=== PATIENT | female | born 1985 | race Caucasian/White ===

== ENCOUNTER 2019-10-27 07:16 | Emergency (ER) | payer SELFPAY ==
[2019-10-27 07:21] VITALS: BP 130/85; PULSE 106; RESP 18; TEMP 36.4; O2SAT 97; BMI 46.3
--- NOTE | 2019-10-27 07:29 | ED_ITS ---
HPI - General Adult General: Chief complaint: General Medical Stated complaint: High Blood sugar Time Seen by Provider: 10/27/19 07:29 Source: patient Mode of arrival: ambulatory Limitations: no limitations History of Present Illness: HPI narrative: Patient is a 33-year-old female who presents to ED today with a complaint of elevated blood sugar; patient states she awoke this morning and had dry mouth and a headache which are usually symptoms associated with elevated blood sugar; patient states she took her blood sugar at home and it read over 500; patient tells me she at one point was taking metformin for her diabetes but has not taking any medication over the past several weeks due to unwanted side effects; patient does not have a primary care provider that manages her diabetes; the metformin she was taking was prescribed from a previous ER visit; patient denies abdominal pain, nausea, vomiting; she reports taking her blood sugars daily and states they average in the 200s Associated symptoms: Reports no associated symptoms and headache(s); Deny chest pain, dyspnea, nausea, rash, palpitations, syncope or vomiting Treatments prior to arrival: none Review of Systems Const: Denies: fever or chills Eyes: Denies: change in vision or blurry vision ENMT: Reports: dry mouth Card: Denies: chest pain, palpitations, irregular heart rhythm, lightheadedness, syncope or shortness of breath on exertion Resp: Denies: shortness of breath, productive cough or pain on inspiration GI: Denies: abdominal pain, nausea, vomiting, heartburn/indigestion or diarrhea : Denies: painful urination Musc: Denies: neck pain, back pain or joint pain Skin/Breast: Denies: rash Neuro: Reports: headache; Denies: numbness in extremities, weakness in extremities, changes in sensation or lack of coordination PFSH ED PFSH: Statuses (acute, chronic, etc) shown below reflect problem list status as previously entered and may not be historically accurate Social History Smoking and tobacco status: current every day smoker Female Reproductive History: Date of last menstrual period: 09/24/19 Physical Exam Const: COMMON NORMALS: no apparent distress, oriented x3, no limitations, alert and well nourished NUTRITIONAL APPEARANCE: obese morbidly obese HENMT: COMMON NORMALS: normocephalic and head/scalp atraumatic HEAD & SCALP: normocephalic and atraumatic Neck/C-Spine: COMMON NORMALS: full ROM, no lymphadenopathy, supple and no meningeal signs Chest: COMMONS NORMALS: inspection of chest normal Resp: COMMON NORMALS: normal respiratory effort and clear to auscultation bilaterally AUSCULTATION: clear to auscultation bilaterally Cardio: COMMON NORMALS: regular rate and regular rhythm RATE: regular rate RHYTHM: regular rhythm GI: COMMON NORMALS: normal to inspection, nondistended, normoactive bowel sounds, soft to palpation, non-tender, no hepatosplenomegaly and no masses PALPATION: Yes soft and Yes no hepatosplenomegaly : COMMON NORMALS: Yes no CVA tenderness BLADDER/KIDNEY EXAM: Yes no CVA tenderness Back/Pelvis: COMMON NORMALS: no CVA tenderness and thoracic and lumbar spine normal to inspection Extremity: COMMON NORMALS: normal to inspection Neuro: COMMON NORMALS: oriented x3 SENSORIUM/ORIENTATION: Yes alert MENINGEAL SIGNS: Yes no meningeal signs Skin: COMMON NORMALS: no rashes or lesions noted GENERAL SKIN EXAM: no rashes or lesions noted Course Vital Signs: Vital signs: Vital Signs Temperature 97.5 F L 10/27/19 07:21 Pulse Rate 99 10/27/19 09:27 Respiratory Rate 18 10/27/19 07:21 Blood Pressure 105/67 10/27/19 09:27 Pulse Oximetry 96 10/27/19 09:27 MDM - General Adult MDM Narrative: Medical decision making narrative: Since patient refuses to adhere to her metformin due to unwanted side effects we will switch her to glipizide. She was given a packet on marketing financial analyst. We will set her up with a primary care physician-stressed the importance of her following up with this. Spoke about diabetic diet. Return to ED precautions given. Blood sugars down here. No evidence for DKA. Lab Data: Labs: Lab Results 10/27/19 10/27/19 10/27/19 Range/Units 07:25 07:45 07:59 WBC 7.0 (4.0-10.0) 10^3/ uL RBC 5.83 H (4.1-5.3) 10^6/u L Hgb 16.4 H (11.5-15.3) g/dL Hct 48.1 H (37.0-47.0) % MCV 82.5 (81-99) fL MCH 28.1 (28.0-34.0) pg MCHC 34.1 (30.0-36.0) g/dL RDW 12.5 (12.1-15.1) % Plt Count 258 (130-400) 10^3/c mm MPV 10.1 (7.4-10.4) fL Neut % (Auto) 67.8 % Lymph % (Auto) 22.9 % Cheyenne % (Auto) 6.0 % Eos % (Auto) 2.6 % Baso % (Auto) 0.3 % Neut # (Auto) 4.7 (1.8-7.7) 10^3/u L Lymph # (Auto) 1.6 (0.8-4.8) 10^3/u L [place] # (Auto) 0.4 (0.2-0.9) 10^3/u L Eos # (Auto) 0.2 (0.0-0.8) 10^3/u L Baso # (Auto) 0.0 (0.0-0.1) 10^3/u L Nucleated RBC % (a uto) 0 % Nucleated RBCs # 0.0 /100WBC Specimen Type Sample Site ABG pH (7.35-7.45) ABG pCO2 (35-45) mmHg ABG pO2 (80.0-100.0) mmH g ABG HCO3 (22-26) mmol/L ABG O2 Saturation ABG Base Excess (-2.0-2.0) mmol/ L Contreras Test A-a O2 Gradient (5-10) mmHg Hematocrit (37-47) % Hgb O2 Saturation (95-100) % Carboxyhemoglobin (0.4-20.1) %THgb Total Hemoglobin (12-16) g/dL Ionized Calcium (1.1-1.4) mmol/L O2 Delivery Device FiO2 % Senior Structural Engineer ID Sodium (136-145) mmol/L Potassium (3.5-5.1) mmol/L Chloride (98-107) mmol/L Carbon Dioxide (22-29) mmol/L Anion Gap (5-19) BUN (6-20) mg/dL Creatinine (0.5-0.9) mg/dL GFR Calculation (90-130) mL/min Glucose (74-109) mg/dL POC Glucose 470 (70-110) mg/dL Calcium (8.6-10.0) mg/Dl Total Bilirubin (0.15-1.2) mg/dL AST (0-32) U/L ALT (0-33) U/L Alkaline Phosphata se (35-105) IU/L Total Protein (6.6-8.7) g/dL Albumin (3.5-5.2) g/dL Globulin (1.3-4.6) g/dL Lipase (13-60) U/L Urine Color Straw (Yellow) Urine Appearance Clear (CLEAR) Urine pH 5.0 (5-7) Ur Specific Gravit y 1.010 (1.005-1.030) Urine Protein Neg (Negative) Urine Glucose (UA) 4+ H (Normal) Urine Ketones Negative (Negative) Urine Occult Blood Neg (Negative) Urine Nitrate Negative (Negative) Urine Bilirubin Neg (NEGATIVE) Urine Urobilinogen Norm (Negative) mg/dL Ur Leukocyte Mary ase Negative (Negative) Serum Ketones (Negative) 10/27/19 10/27/19 10/27/19 Range/Units 07:59 07:59 08:48 WBC (4.0-10.0) 10^3/ uL RBC (4.1-5.3) 10^6/u L Hgb (11.5-15.3) g/dL Hct (37.0-47.0) % MCV (81-99) fL MCH (28.0-34.0) pg MCHC (30.0-36.0) g/dL RDW (12.1-15.1) % Plt Count (130-400) 10^3/c mm MPV (7.4-10.4) fL Neut % (Auto) % Lymph % (Auto) % Cheyenne % (Auto) % Eos % (Auto) % Baso % (Auto) % Neut # (Auto) (1.8-7.7) 10^3/u L Lymph # (Auto) (0.8-4.8) 10^3/u L [place] # (Auto) (0.2-0.9) 10^3/u L Eos # (Auto) (0.0-0.8) 10^3/u L Baso # (Auto) (0.0-0.1) 10^3/u L Nucleated RBC % (a uto) % Nucleated RBCs # /100WBC Specimen Type Sample Site ABG pH (7.35-7.45) ABG pCO2 (35-45) mmHg ABG pO2 (80.0-100.0) mmH g ABG HCO3 (22-26) mmol/L ABG O2 Saturation ABG Base Excess (-2.0-2.0) mmol/ L Contreras Test A-a O2 Gradient (5-10) mmHg Hematocrit (37-47) % Hgb O2 Saturation (95-100) % Carboxyhemoglobin (0.4-20.1) %THgb Total Hemoglobin (12-16) g/dL Ionized Calcium (1.1-1.4) mmol/L O2 Delivery Device FiO2 % Senior Structural Engineer ID Sodium 129 L (136-145) mmol/L Potassium 4.2 (3.5-5.1) mmol/L Chloride 93 L (98-107) mmol/L Carbon Dioxide 22 (22-29) mmol/L Anion Gap 18.2 (5-19) BUN 15 (6-20) mg/dL Creatinine 0.7 (0.5-0.9) mg/dL GFR Calculation 95.8 (90-130) mL/min Glucose 495 H (74-109) mg/dL POC Glucose 389 (70-110) mg/dL Calcium 9.8 (8.6-10.0) mg/Dl Total Bilirubin 0.3 (0.15-1.2) mg/dL AST 16 (0-32) U/L ALT 25 (0-33) U/L Alkaline Phosphata se 84 (35-105) IU/L Total Protein 6.9 (6.6-8.7) g/dL Albumin 4.0 (3.5-5.2) g/dL Globulin 2.9 (1.3-4.6) g/dL Lipase 29 (13-60) U/L Urine Color (Yellow) Urine Appearance (CLEAR) Urine pH (5-7) Ur Specific Gravit y (1.005-1.030) Urine Protein (Negative) Urine Glucose (UA) (Normal) Urine Ketones (Negative) Urine Occult Blood (Negative) Urine Nitrate (Negative) Urine Bilirubin (NEGATIVE) Urine Urobilinogen (Negative) mg/dL Ur Leukocyte Mary ase (Negative) Serum Ketones Negative (Negative) 10/27/19 10/27/19 Range/Units 09:02 09:50 WBC (4.0-10.0) 10^3/ uL RBC (4.1-5.3) 10^6/u L Hgb (11.5-15.3) g/dL Hct (37.0-47.0) % MCV (81-99) fL MCH (28.0-34.0) pg MCHC (30.0-36.0) g/dL RDW (12.1-15.1) % Plt Count (130-400) 10^3/c mm MPV (7.4-10.4) fL Neut % (Auto) % Lymph % (Auto) % [place] % (Auto) % Eos % (Auto) % Baso % (Auto) % Neut # (Auto) (1.8-7.7) 10^3/u L Lymph # (Auto) (0.8-4.8) 10^3/u L [place] # (Auto) (0.2-0.9) 10^3/u L Eos # (Auto) (0.0-0.8) 10^3/u L Baso # (Auto) (0.0-0.1) 10^3/u L Nucleated RBC % (a uto) % Nucleated RBCs # /100WBC Specimen Type Arterial Sample Site Brachial, left ABG pH 7.37 (7.35-7.45) ABG pCO2 40.0 (35-45) mmHg ABG pO2 74.6 L (80.0-100.0) mmH g ABG HCO3 23.3 (22-26) mmol/L ABG O2 Saturation 96.3 ABG Base Excess -1.8 (-2.0-2.0) mmol/ L Contreras Test Pos A-a O2 Gradient 25.7 H (5-10) mmHg Hematocrit 46.8 (37-47) % Hgb O2 Saturation 91.4 L (95-100) % Carboxyhemoglobin 5.2 (0.4-20.1) %THgb Total Hemoglobin 15.3 (12-16) g/dL Ionized Calcium 1.2 (1.1-1.4) mmol/L O2 Delivery Device Room air FiO2 21.0 % Senior Structural Engineer ID cak Sodium 134.0 (136-145) mmol/L Potassium 4.0 (3.5-5.1) mmol/L Chloride (98-107) mmol/L Carbon Dioxide (22-29) mmol/L Anion Gap (5-19) BUN (6-20) mg/dL Creatinine (0.5-0.9) mg/dL GFR Calculation (90-130) mL/min Glucose 365.0 H (74-109) mg/dL POC Glucose 310 (70-110) mg/dL Calcium (8.6-10.0) mg/Dl Total Bilirubin (0.15-1.2) mg/dL AST (0-32) U/L ALT (0-33) U/L Alkaline Phosphata se (35-105) IU/L Total Protein (6.6-8.7) g/dL Albumin (3.5-5.2) g/dL Globulin (1.3-4.6) g/dL Lipase (13-60) U/L Urine Color (Yellow) Urine Appearance (CLEAR) Urine pH (5-7) Ur Specific Gravit y (1.005-1.030) Urine Protein (Negative) Urine Glucose (UA) (Normal) Urine Ketones (Negative) Urine Occult Blood (Negative) Urine Nitrate (Negative) Urine Bilirubin (NEGATIVE) Urine Urobilinogen (Negative) mg/dL Ur Leukocyte Mary ase (Negative) Serum Ketones (Negative) Discharge Plan Discharge Patient Disposition: Home, Self-Care Clinical Impression: Non compliance w medication regimen Uncontrolled diabetes mellitus Qualifiers: Diabetes mellitus type: type 2 Glycemic state: with hyperglycemia Qualified Code(s): E11.65 - Type 2 diabetes mellitus with hyperglycemia Condition: Stable Prescriptions: New glipizide 5 mg tablet extended release 24hr 5 mg PO DAILY Qty: 30 RF: 0 Discontinued melatonin 5 mg Tablet 5 mg PO BEDTIME RF: 0 Discharge Orders: Discharge Order (Routine); Ordered 10/27/19 Ordered By: Renetta Escobar Discharge Diet: Diabetic Discharge Activity: Resume usual activity Activity Restrictions/Additional Instructions: YOU NEED TO ESTABLISH WITH A PRIMARY CARE PROVIDER FOR BETTER CONTROL OF YOUR DIABETES. BEGIN KEEPING DAILY LOG OF BLOOD SUGARS SO THEY CAN ADJUST YOUR MEDICATIONS ACCORDINGLY. Coding Level of Care Code ED Manager Consumer Insights for Chg Fwd Exam Problem Focused
--- NOTE | 2019-10-27 07:36 | PC.NURSE ---
pt states she has high blood sugar because she does not take her anti-diabetic medication.
[2019-10-27 07:39] LABS: Glucose Point of Care 470 mg/dL (70-110)
[2019-10-27 07:56] LABS: Add Urine Microscopic? NO
[2019-10-27 08:02] LABS: Bilirubin Urine Neg (NEGATIVE); Blood Urine Neg (Negative); Glucose Urine UA 4+ (Normal); Ketones Urine Negative (Negative); Leukocyte Esterase Urine Negative (Negative); Nitrate Urine Negative (Negative); Protein Urine Neg (Negative); Urine Appearance Clear (CLEAR); Urine Color Straw (Yellow); Urobilinogen Urine Norm (Negative)
[2019-10-27 08:07] LABS: Basophils % 0.3 %; Eosinophils # 0.2 10^3/uL (0.0-0.8); Eosinophils % 2.6 %; Hematocrit 48.1 % (37.0-47.0); Hemoglobin 16.4 g/dL (11.5-15.3); Lymphocytes # 1.6 10^3/uL (0.8-4.8); Lymphocytes % 22.9 %; Mean Corpuscular HGB Conc 34.1 g/dL (30.0-36.0); Mean Corpuscular Hemoglobin 28.1 pg (28.0-34.0); Mean Corpuscular Volume 82.5 fL (81-99); Mean Platelet Volume 10.1 fL (7.4-10.4); Monocytes # 0.4 10^3/uL (0.2-0.9); Neutrophils # 4.7 10^3/uL (1.8-7.7); Neutrophils % 67.8 %; Nucleated Red Blood Cells % 0 %; Platelet Count 258 10^3/cmm (130-400); Red Blood Count 5.83 10^6/uL (4.1-5.3); Red Cell Distribution Width 12.5 % (12.1-15.1)
[2019-10-27] MEDS: insulin nph human 100 units/1 mL 8 UNIT SUBCUT (08:10)
[2019-10-27] MEDS: sodium chloride 0.9% 1,000 ML 999 ML IV ×2 (08:11→09:25)
[2019-10-27 08:19] LABS: Ketone (Acetest) Serum Negative (Negative)
[2019-10-27 08:25] LABS: Alanine Aminotransferase 25 U/L (0-33); Alkaline Phosphatase 84 IU/L (35-105); Anion Gap 18.2 (5-19); Aspartate Amino Transferase 16 U/L (0-32); Blood Urea Nitrogen 15 mg/dL (6-20); Calcium 9.8 mg/Dl (8.6-10.0); Carbon Dioxide 22 mmol/L (22-29); Chloride 93 mmol/L (98-107); Globulin 2.9 g/dL (1.3-4.6); Glomerular Filtration Rate 95.8 mL/min (90-130); Glucose 495 mg/dL (74-109); Lipase 29 U/L (13-60); Potassium 4.2 mmol/L (3.5-5.1); Sodium 129 mmol/L (136-145); Total Bilirubin 0.3 mg/dL (0.15-1.2); Total Protein 6.9 g/dL (6.6-8.7)
[2019-10-27 08:51] LABS: Glucose Point of Care 389 mg/dL (70-110)
[2019-10-27 09:13] LABS: ABG PH Result 7.37 (7.35-7.45); Alveolar-Arterial Oxygen Gradi 25.7 mmHg (5-10); Arterial Blood Gas Hematocrit 46.8 % (37-47); Base Excess ABG -1.8 mmol/L (-2.0-2.0); Blood Gas Allen Test Pos; Blood Gas Sample Site Brachial, left; Blood Gas Sample Type Arterial; Carboxyhemoglobin 5.2 %THgb (0.4-20.1); HCO3 ABG 23.3 mmol/L (22-26); HGB O2 Sat 91.4 % (95-100); Ionized Calcium Level - ABG 1.2 mmol/L (1.1-1.4); Oxygen Device ROOM AIR; Oxygen Saturation ABG 96.3; PO2 ABG 74.6 mmHg (80.0-100.0); Total Hemoglobin 15.3 g/dL (12-16)
[2019-10-27] MEDS: insulin nph human 100 units/1 mL 6 UNIT SUBCUT (09:23)
[2019-10-27 09:27] VITALS: BP 105/67; PULSE 99; O2SAT 96
[2019-10-27 09:53] LABS: Glucose Point of Care 310 mg/dL (70-110)
--- NOTE | 2019-10-27 10:07 | DCPLANNER ---
bank manager was asked to speak with patient about getting established with a primary care physician. bank manager spoke with patient, she stated that she does not have insurance at this time, pillowcase maker gave patient both of the financial planning consultant applications to fill out and turn in. bank manager offered to help patient get established and schedule a follow up appointment for patient before leaving the ED, patient stated that she would wait and turn the applications in before scheduling any appointments. bank manager gave patient contact information, so if patient wanted help in the future that patient can call pillowcase maker to help with getting established with a physician.
[2019-10-27 10:40] VITALS: BP 127/83; PULSE 96; O2SAT 93
== END 2019-10-27 10:40 | disposition home or self-care (01) ==
PROVIDERS: Emergency Provider Physician Assistant
DX: E11.65 Type 2 diabetes mellitus with hyperglycemia (principal); F17.210 Nicotine dependence, cigarettes, uncomplicated
CPT/HCPCS: 36415; 36416; 36600; 80051; 80053; 81003; 82009; 82810; 82962; 83690; 83986; 85025; 96360; 96361; 96372; 99281; A9270; J1815; J7030

== ENCOUNTER 2019-11-07 10:13 | Emergency (ER) | payer SELFPAY ==
--- NOTE | 2019-11-07 10:16 | W.ED.SKABFB ---
HPI - Skin/Abscess/Foreign Bdy General: Chief complaint: General Medical Stated complaint: Rash Time Seen by Provider: 11/07/19 10:16 Source: patient Mode of arrival: ambulatory Limitations: no limitations History of Present Illness: HPI narrative: Patient is a 33-year-old female who presents to ED today with complaints of a 2-day history of a pruritic rash; patient cannot identify any new environmental, household, chemical exposures or new medications; she states she has had hives previously that felt and looked the same; patient has no difficulty swallowing, trouble breathing, or other complaints besides the rash at this time MD complaint: rash Onset (ago): day(s) Location: generalized Quality: pruritic Relieving factors: none Exacerbating factors: none Associated symptoms: Reports no associated symptoms; Deny chills, fever(s), nausea or vomiting Review of Systems Const: Denies: fever, chills, body aches or fatigue Eyes: Denies: change in vision, blurry vision or eye discharge ENMT: Denies: enlarged tonsils, painful swallowing, swelling of lips/tongue or nasal congestion Card: Denies: chest pain, palpitations or irregular heart rhythm Resp: Denies: shortness of breath, productive cough, non-productive cough or chest congestion GI: Denies: nausea or vomiting Musc: Denies: neck pain or back pain Skin/Breast: Reports: rash and itching; Denies: skin tenderness Neuro: Denies: headache PFSH ED PFSH: Statuses (acute, chronic, etc) shown below reflect problem list status as previously entered and may not be historically accurate Social History Smoking and tobacco status: current every day smoker Female Reproductive History: Date of last menstrual period: 09/24/19 Physical Exam Const: COMMON NORMALS: no apparent distress, oriented x3, no limitations and alert NUTRITIONAL APPEARANCE: obese morbidly obese HENMT: COMMON NORMALS: normocephalic and head/scalp atraumatic HEAD & SCALP: normocephalic and atraumatic MOUTH: oral and palatal mucosa normal and tongue normal THROAT: posterior oropharynx normal, tonsils normal and uvula midline Resp: COMMON NORMALS: normal respiratory effort and clear to auscultation bilaterally AUSCULTATION: clear to auscultation bilaterally Cardio: COMMON NORMALS: regular rate and regular rhythm RATE: regular rate RHYTHM: regular rhythm Neuro: COMMON NORMALS: oriented x3 SENSORIUM/ORIENTATION: Yes alert Skin: OTHER: Generalized urticaria present Course Vital Signs: Vital signs: Vital Signs Temperature 98.3 F 11/07/19 10:19 Pulse Rate 116 H 11/07/19 10:19 Respiratory Rate 17 11/07/19 10:26 Blood Pressure 155/97 11/07/19 10:26 Pulse Oximetry 94 11/07/19 10:26 Discharge Plan Discharge Patient Disposition: Home, Self-Care Clinical Impression: Urticaria Condition: Stable Prescriptions: No Action glipizide 5 mg tablet extended release 24hr 5 mg PO DAILY Qty: 30 RF: 0 Discharge Orders: Discharge Order (Routine); Ordered 11/07/19 Ordered By: Renetta Escobar Activity Restrictions/Additional Instructions: As discussed you may continue to take benadryl and pepcid at home. Can try hydrocortisone cream to help with itching. Recommend you follow up with primary care if hives persist past another 72 hours. Coding Level of Care Code ED Career Development Coordinator/Teacher for Kristie Morfin Exam Problem Focused
[2019-11-07 10:19] VITALS: BP 155/97; PULSE 116; RESP 20; TEMP 36.8; O2SAT 96; BMI 39.4
[2019-11-07 10:26] VITALS: BP 155/97; RESP 17; O2SAT 94
[2019-11-07] MEDS: diphenhydrAMINE 50 mg/mL SDV 1mL IVP (10:30)
[2019-11-07] MEDS: famotidine 20 mg/2 mL INJ 40 MG IVP (10:36)
[2019-11-07 11:32] VITALS: BP 116/82; PULSE 97; RESP 17; O2SAT 92
--- NOTE | 2019-11-09 12:32 | DCPLANNER ---
restaurant hospitality manager had message to speak with patient about getting established with a primary care physician. restaurant hospitality manager called phone number [phone], was unable to speak with patient at this time, a voicemail was left for patient to return telehealth case manager phone call.
== END 2019-11-07 11:16 | disposition home or self-care (01) ==
PROVIDERS: Emergency Provider Physician Assistant
DX: L50.9 Urticaria, unspecified (principal); Z79.84 Long term (current) use of oral hypoglycemic drugs; F17.210 Nicotine dependence, cigarettes, uncomplicated
CPT/HCPCS: 96374; 96375; 99282; 99283; J1200; J2930; J3490

== ENCOUNTER 2020-11-12 22:49 | Emergency (ER) | payer SELFPAY ==
[2020-11-12 22:50] VITALS: BP 162/104; PULSE 100; RESP 14; TEMP 36.6; O2SAT 99; BMI 39.9
[2020-11-12 23:04] VITALS: BP 162/104; PULSE 100; RESP 16; O2SAT 98
--- NOTE | 2020-11-12 23:20 | ED_ITS ---
HPI - Skin/Abscess/Foreign Bdy General: Chief complaint: Skin/Abscess/Foreign Body Stated complaint: ABSCESS UNDER L ARM Time Seen by Provider: 11/12/20 23:04 History of Present Illness: HPI narrative: 34-year-old female patient presents to the emergency department with onset of skin abscess that occurs to the left axilla area, has been present for 4 to 5 days. She's report started draining last night. She denies fever or chills. She states previous episode of similar event that occurred to the right lower extremity. She states healed spontaneously. She has attempted hot shower and warm compresses without improvement. She reports is not , last menstrual period complaint: abscess/boil Onset (ago): day(s) (-5) Location: chest (Left axilla) Severity: moderate Relieving factors: none Exacerbating factors: none Context: none Associated symptoms: Reports no associated symptoms; Deny chills, fever(s), nausea or vomiting Treatments prior to arrival: other (Warm compresses) Review of Systems General: Reports: 10 or more systems reviewed and unremarkable except in HPI and below Const: Denies: fever(s), chills or diaphoresis Eyes: Denies: blurry vision or eye redness ENMT: Denies: throat pain, dental pain or disequilibrium Card: Denies: chest pain, palpitations or irregular heart rhythm Resp: Denies: dyspnea, productive cough, non-productive cough or wheezing GI: Denies: abdominal pain, nausea or vomiting : Denies: difficulty voiding or dysuria Musc: Denies: neck pain, back pain, joint pain or joint swelling Skin/Breast: Reports: erythema, skin tenderness and changes in skin color; Denies: rash or pruritus Neuro: Denies: headache(s), weakness in extremities or behavioral changes Psych: Denies: anxiety, depression, sleeping more, hopelessness or irritability Regan/Lymph: Denies: easy bruising PFSH ED PFSH: Social History Smoking and tobacco status: current every day smoker Female Reproductive History: Date of last menstrual period: 09/24/19 Physical Exam Const: COMMON NORMALS: no acute distress, patient oriented x3, healthy appearing and alert GENERAL APPEARANCE: cooperative, comfortable and well hydrated HENMT: COMMON NORMALS: normocephalic, Normal external nose present and moist oral mucous membranes HEAD & SCALP: normocephalic NOSE: Normal external nose present Eye: COMMON NORMALS: Equal, round and reactive pupils present and EOMs intact bilaterally GENERAL EYE: appearance normal, both eyes and all related structures PUPIL: Yes Equal, round and reactive pupils present Neck/C-Spine: COMMON NORMALS: full ROM and no lymphadenopathy GENERAL: Yes normal visual inspection and Yes trachea midline CERVICAL SPINE: Yes cervical ROM normal Lymph: LYMPHATIC: no lymphadenopathy noted Chest: COMMONS NORMALS: normal inspection of the chest Resp: COMMON NORMALS: normal respiratory effort and clear to auscultation bilaterally AUSCULTATION: clear to auscultation bilaterally Cardio: COMMON NORMALS: regular rhythm, S1 normal heart sound present and S2 normal heart sound present RHYTHM: regular rhythm HEART SOUNDS: S1 normal heart sound present and S2 normal heart sound present GI: COMMON NORMALS: Soft to palpation and non-tender INSPECTION: Yes normal to inspection PALPATION: Yes Soft to palpation : COMMON NORMALS: Yes no CVA tenderness BLADDER/KIDNEY EXAM: Yes no CVA tenderness Back/Pelvis: COMMON NORMALS: no CVA tenderness and thoracic and lumbar spine normal to inspection Extremity: COMMON NORMALS: normal to inspection, capillary refill normal and no pedal edema GENERAL: Yes normal exam except as noted Neuro: COMMON NORMALS: patient oriented x3 and no focal motor deficits SENSORIUM/ORIENTATION: Yes alert Psych: COMMON NORMALS: mental status grossly normal, Normal thought process p resent and cooperative ACTIVITY/MOTOR BEHAVIOR: Yes appropriate eye contact THOUGHT PROCESS: Normal thought process present Skin: COMMON NORMALS: no rashes or lesions noted, turgor normal, no petechiae and no mottling SKIN IMAGES (FEMALE): 1. 3 cm area of induration with central purulent exudate, surrounding erythema present to the left axilla GENERAL SKIN EXAM: no rashes or lesions noted, elasticity normal and turgor normal Procedures Abscess I/D Site: upper extremity (left axilla) Side (if applicable): left Local Anesthetic: lidocaine 1% Amount of anesthesia used (mL): 6 Technique: incised with #11 blade (large amount of purulent exudate produced) Irrigation: Yes Packing used?: none Course Vital Signs: Vital signs: Vital Signs Temperature 97.9 F 11/12/20 22:50 Pulse Rate 99 11/12/20 23:59 Respiratory Rate 16 11/12/20 23:59 Blood Pressure 139/87 11/12/20 23:59 Pulse Oximetry 95 11/12/20 23:59 Discharge Plan Discharge Patient Disposition: Home Clinical Impression: Abscess of skin or subcutaneous tissue Qualifiers: Site of cutaneous abscess: extremity Site of cutaneous abscess of extremity: axilla Laterality: left Qualified Code(s): L02.412 - Cutaneous abscess of left axilla Cellulitis Qualifiers: Site of cellulitis: extremity Site of cellulitis of extremity: axilla Laterality: left Qualified Code(s): L03.112 - Cellulitis of left axilla Condition: Stable Prescriptions: New IBU 800 mg tablet 800 mg PO TID PRN (Reason: pain) Qty: 30 RF: 0 Bactrim DS 800-160 mg tablet 1 tab PO BID 7 Days Qty: 14 RF: 0 No Action glipizide 5 mg tablet extended release 24hr 5 mg PO DAILY Qty: 30 RF: 0 Discharge Orders: Discharge ED (Routine); Ordered 11/12/20 Ordered By: Nahomy Bowman Discharge Diet: Usual diet Discharge Activity: Resume usual activity Patient Instructions: Cellulitis (ED), Abscess Incision and Drainage (ED) Activity Restrictions/Additional Instructions: Continue warm moist compresses as needed for pain Take antibiotics until all gone Ibuprofen as prescribed, take medication with food, drink lots of fluids to stay hydrated, do not take [id number] medication such as Aleve, naproxen, Advil or ibuprofen as duplication of therapy can cause harm to kidneys Return to the emergency department if you develop fever, increased worsening pain or other concerning symptoms. Coding Level of Care Code ED Burrito Maker for Kristie Fwlopez Exam Comprehensive
[2020-11-12] MEDS: acetaminophen 500 mg Tablet 1000 MG PO (23:24)
[2020-11-12] MEDS: lidocaine 1% INJ 20 mL INJECTION (23:26)
[2020-11-12 23:59] VITALS: BP 139/87; PULSE 99; RESP 16; O2SAT 95
== END 2020-11-13 00:04 | disposition home or self-care (01) ==
PROVIDERS: Emergency Provider Nurse Practitioner Family
DX: L02.412 Cutaneous abscess of left axilla (principal); L03.112 Cellulitis of left axilla; Z79.84 Long term (current) use of oral hypoglycemic drugs; F17.210 Nicotine dependence, cigarettes, uncomplicated
CPT/HCPCS: 10060; 12345; 87070; 87075; 87077; 87186; 87205; 99281; 99283

== ENCOUNTER 2021-08-27 20:36 | Emergency (ER) | payer BC, SELFPAY ==
[2021-08-27 20:45] VITALS: BP 141/83; PULSE 114; RESP 18; TEMP 36.6; O2SAT 95; BMI 39.4
[2021-08-27 22:00] LABS: Add Urine Microscopic? NO; Charge for UA Resulting for Rev
[2021-08-27 22:09] LABS: Protein Urine Neg (Negative); Urine Appearance SL Hazy (CLEAR); Urine Color Yellow (Yellow); pH Urine 5 (5-7)
[2021-08-27 22:10] LABS: Bilirubin Urine Neg (Negative); Blood Urine Neg (Negative); Glucose Urine UA 4+ (Normal); Ketones Urine 1+ (Negative); Leukocyte Esterase Urine Negative (Negative); Nitrate Urine Negative (Negative); Urobilinogen Urine Norm (Negative)
--- NOTE | 2021-08-28 00:29 | ED_ITS ---
HPI - Back Pain/Injury General: Chief Complaint: Back Pain/Injury Stated Complaint: Lower Back Pain Time Seen by Provider: 08/27/21 23:53 History of Present Illness: HPI Narrative: Patient is a 35-year-old female comes to the ED with lower back pain. Patient has had this back pain before and it comes usually 2 weeks before she has her menstrual period. This episode of back pain feels little worse than previous ones. Denies any injury or trauma to cause pain. She says any movement causes worsening back pain. When she is at rest her back pain does improve. Pain is located on the right lower back. She rates pain currently a 9 out of 10. Denies any dysuria, hematuria, bladder or bowel incontinence,, pain in lower extremities. Associated symptoms: Deny abdominal pain, chills, dysuria, fatigue, fever(s), hematuria, nausea or vomiting Review of Systems Const: Denies: fever(s), chills or fatigue Eyes: Denies: change in vision or eye discomfort ENMT: Denies: throat pain, odynophagia, nasal discharge or nasal congestion Card: Denies: chest pain, palpitations, edema, swelling of feet/ankles, dyspnea on exertion or orthopnea Resp: Denies: dyspnea, productive cough or non-productive cough GI: Denies: abdominal pain, nausea, vomiting, diarrhea, constipation or hematochezia : Denies: flank pain, dysuria or hematuria Musc: Reports: back pain; Denies: neck pain or extremity swelling Skin/Breast: Denies: rash or new lesions Neuro: Denies: headache(s), numbness in extremities or weakness in extremities [facility] ED PFSH: Social History Smoking and tobacco status: current every day smoker Female Reproductive History: Date of last menstrual period: 08/06/21 Physical Exam Const: COMMON NORMALS: no acute distress, patient oriented x3 and alert GENERAL APPEARANCE: cooperative and comfortable HENMT: COMMON NORMALS: normocephalic HEAD & SCALP: normocephalic MOUTH: Normal oral and palatal mucosa present THROAT: posterior oropharynx normal and uvula midline Neck/C-Spine: COMMON NORMALS: supple GENERAL: Yes normal visual inspection Resp: COMMON NORMALS: normal respiratory effort, No retractions, No use of accessory muscles and clear to auscultation bilaterally AUSCULTATION: clear to auscultation bilaterally Cardio: COMMON NORMALS: regular rate, regular rhythm, S1 normal heart sound present, S2 normal heart sound present, No gallops present (Cardio), No clicks present (Cardio), No murmurs present (Cardio) and Peripheral pulses 2+ throughout RATE: regular rate RHYTHM: regular rhythm HEART SOUNDS: S1 normal heart sound present and S2 normal heart sound present PERIPHERAL PULSES: Peripheral pulses 2+ throughout GI: COMMON NORMALS: Normal to inspection, nondistended, normoactive bowel sounds present, Soft to palpation, non-tender and no masses PALPATION: Yes Soft to palpation : COMMON NORMALS: Yes no CVA tenderness BLADDER/KIDNEY EXAM: Yes no CVA tenderness Back/Pelvis: COMMON NORMALS: no CVA tenderness LUMBAR SPINE/LOWER BACK: No ROM limited, Yes pain with ROM, No lumbar spinal tenderness and Yes paraspinal muscle tenderness Lumbar paraspinal muscle tenderness: right Right lumbar paraspinal muscle tenderness: L3 and L4 Extremity: COMMON NORMALS: normal to inspection Neuro: COMMON NORMALS: patient oriented x3 and moves all extremities SENSORIUM/ORIENTATION: Yes alert Skin: GENERAL SKIN EXAM: dry skin Course Vital Signs: Vital signs: Vital Signs Temperature 97.9 F 08/27/21 20:45 Pulse Rate 88 08/28/21 01:01 Respiratory Rate 18 08/28/21 01:01 Blood Pressure 143/90 08/28/21 01:01 Pulse Oximetry 98 08/28/21 01:01 MDM - Back Pain/Injury MDM Narrative: Medical decision making narrative: Patient is a 35-year-old female comes to the ED with right-sided lower back pain. She denies any injury or trauma to cause back pain. She has had this pain before and it happens approximately 2 weeks before she starts her menstrual period. Denies any cauda equina symptoms. Vitals stable. Exam shows a patient in no acute distress and she sitting comfortably on exam bed when I enter the room. She has some right sided lumbar paraspinal muscle tenderness along with lower back pain with range of motion. Urinalysis shows no blood or any infection findings. Patient was diagnosed with musculoskeletal back pain she was given a dose of Toradol and Norflex while here in the ED. She was discharged home with a prescription for Celebrex and cyclobenzaprine. She was told to follow-up with her PCP in 7 to 10 days reevaluation. Return to ED precautions given. Patient understood agree with plan. Lab Data: Labs: Lab Results 08/27/21 20:44 Urine Color Yellow (Yellow) Urine Appearance Sl hazy (CLEAR) Urine pH 5 (5-7) Ur Specific Gravit y 1.020 (1.005-1.030) Urine Protein Neg (Negative) Urine Glucose (UA) 4+ H (Normal) Urine Ketones 1+ H (Negative) Urine Blood Neg (Negative) Urine Nitrate Negative (Negative) Urine Bilirubin Neg (Negative) Urine Urobilinogen Norm mg/dL mg/dL (Negative) Ur Leukocyte Mary ase Negative (Negative) Discharge Plan Discharge Patient Disposition: Home Clinical Impression: Musculoskeletal back pain Condition: Stable Prescriptions: New Celebrex 100 mg capsule 100 mg PO BID PRN (Reason: pain) Qty: 20 RF: 0 cyclobenzaprine 10 mg tablet 10 mg PO BID PRN (Reason: muscle spasm) Qty: 20 RF: 0 No Action glipizide 5 mg tablet extended release 24hr 5 mg PO DAILY Qty: 30 RF: 0 IBU 800 mg tablet 800 mg PO TID PRN (Reason: pain) Qty: 30 RF: 0 Discharge Orders: Discharge ED (Routine); Ordered 08/28/21 Ordered By: Ivan Campbell Discharge Diet: Regular Discharge Activity: Increase activity as tolerated Patient Instructions: Back Pain (ED) Activity Restrictions/Additional Instructions: Follow-up with your PCP in the next 5 to 7 days reevaluation. Take medications as prescribed. Apply cold pack or heat on the sore area back to help with symptoms. Try to stretch lower back daily as well. return to the ER or your medical provider if condition worsens. Please read and understand discharge instructions. Thank you for choosing [facility] for your healthcare needs today. Please realize this is an emergency room and that we are providing you with a medical screening exam and this may not be complete and all inclusive of all the testing and or work up that you may need to determine your ailment or severity of your illness. It is very important that you follow up as instructed or that you return to the Emergency Department should you have concerns or if your cond ition changes or worsens in any way. Coding Level of Care Code ED Operations Assistant for Kristie Fwd Exam Comprehensive
[2021-08-28] MEDS: ketorolac 60 mg/2 mL INJ IM (00:56)
[2021-08-28] MEDS: orphenadrine 30 mg/mL Inj 2 mL 60 MG IM (00:57)
[2021-08-28 01:01] VITALS: BP 143/90; PULSE 88; RESP 18; O2SAT 98
== END 2021-08-28 01:04 | disposition home or self-care (01) ==
PROVIDERS: Emergency Medicine; Emergency Provider Physician Assistant
DX: M54.50 Low back pain, unspecified (principal); F17.210 Nicotine dependence, cigarettes, uncomplicated
CPT/HCPCS: 81003; 96372; 99283; J1885; J2360

== ENCOUNTER 2022-01-10 13:10 | Emergency (ER) | payer BC, SELFPAY ==
[2022-01-10 13:21] VITALS: BP 140/90; PULSE 102; RESP 18; TEMP 36.7; O2SAT 95; BMI 40.3
--- NOTE | 2022-01-10 13:35 | ED_ITS ---
HPI - General Adult General: Chief complaint: General Medical Stated complaint: right breast abscess Time Seen by Provider: 01/10/22 13:35 History of Present Illness: Ms. Hua is a 36-year-old lady without reported past medical history presents to the emergency department due to skin lesion on breast. She reports onset of symptoms was 5 days ago and denies specific known provoking factor. She has had this similar episode on the contralateral breast but denies known history of MRSA or other resistant skin organisms. It is moderate to severe in intensity at its painful and worse with touching the lesion or anything touching it such as wearing a bra. Course has been worsening. Denies signs systemic illness. No other specific changes in health, exacerbating, or alleviating factors identified. Onset (ago): day(s) Location: chest Radiation: non-radiation Severity: moderate Quality: constant Relieving factors: none Exacerbating factors: movement and other Associated symptoms: Reports no associated symptoms Review of Systems General: Reports: 10 or more systems reviewed and unremarkable except in HPI and below PFS ED PFSH: Medical History Skin abscess Social History Smoking and tobacco status: current every day smoker Female Reproductive History: Date of last menstrual period: 08/06/21 Physical Exam Const: COMMON NORMALS: alert GENERAL APPEARANCE: cooperative and well developed HENMT: COMMON NORMALS: normocephalic and atraumatic HEAD & SCALP: normocephalic and atraumatic Eye: COMMON NORMALS: conjunctivae normal CONJUNCTIVA: Yes conjunctivae normal SCLERA: sclerae normal Neck/C-Spine: COMMON NORMALS: supple GENERAL: Yes trachea midline Resp: COMMON NORMALS: normal respiratory effort EFFORT & INSPECTION: Yes able to speak in complete sentences Cardio: COMMON NORMALS: regular rate and regular rhythm RATE: regular rate RHYTHM: regular rhythm GI: COMMON NORMALS: Soft to palpation PALPATION: Yes Soft to palpation and No Tenderness to palpation present (GI) PERCUSSION: normal to percussion Extremity: GENERAL: Yes normal exam except as noted and No edema Neuro: COMMON NORMALS: moves all extremities SENSORIUM/ORIENTATION: Yes alert and No Orientation impaired Psych: COMMON NORMALS: mental status grossly normal and Normal thought process present THOUGHT PROCESS: Normal thought process present Skin: NARRATIVE SKIN EXAM: Approximately 4 x 4 centimeter roughly round raised erythematous lesion with surrounding skin induration. Small area of surrounding erythema. There does appear to be area of pus just under skin. No tracking to axilla or towards nipple. Procedures Abscess I/D Site: other (Right lateral breast remote from nipple) Local Anesthetic: lidocaine 2% and with epi Amount of anesthesia used (mL): 5 Technique: incised with #11 blade Amount of fluid expressed (mL): 10 Packing used?: plain Course ED course: - Patient was seen and evaluated by me at bedside -Vital signs obtained - Initial evaluation notable for exam as above - [id number] ultrasound performed with well-defined abscess identified. Superficial and approximately 3 cm x 3 cm x 3 cm amenable to drainage - Incision and drainage performed with purulent drainage. Wound packing placed with instructions for follow-up. - Upon serial reexamination after treatment the patient was improved - Based on patient history, evaluation, and testing as interpreted the most likely cause of the patient's condition is skin abscess - The results of ED evaluation were discussed with the patient including prescriptions and/or symptomatic cares (if applicable) including appropriate and responsible use, followup plan, and return precautions. The patient verbalized understanding and felt safe for discharge. - Patient discharged in satisfactory condition. Note: Click bubbles or prepopulated donohue in note writing are used for assistance with data collection and billing and are inherently more limited than narrative and other text portions of this note. Please use narrative for additional clinical history and defer to narrative/free test for any case of contradictory information. If information appears in only free text or click bubble it should be considered present or absent as reported. Please contact note credit underwriter for clarifications of clinical information or contradictory information. MDM is a brief summary, contradictory or erroneous seeming information should be clarified and full note should be reviewed. Vital Signs: Vital signs: Vital Signs Temperature 98.1 F 01/10/22 13:21 Pulse Rate 92 01/10/22 15:09 Respiratory Rate 16 01/10/22 15:09 Blood Pressure 151/87 01/10/22 13:48 Pulse Oximetry 99 01/10/22 15:09 MDM - General Adult Medical Decision Making 36-year-old lady presenting due to skin lesion. Abscess identified and incision and drainage performed with the patient tolerated procedure well. Placed on antibiotics and packing placed with plan for removal/reevaluation likely Friday. Satisfactory for outpatient management. Medical Records I reviewed the patient's medical records. Lab Data I reviewed the patient's lab results. Discharge Plan Discharge Patient Disposition: Home Clinical Impression: Skin abscess Condition: Stable Prescriptions: New clindamycin HCl 300 mg capsule 300 mg PO Q8H 10 Days Qty: 30 0RF No Action glipizide 5 mg tablet extended release 24hr 5 mg PO DAILY Qty: 30 0RF Rx Instructions: Take daily after breakfast IBU 800 mg tablet 800 mg PO TID PRN (Reason: pain) Qty: 30 0RF Rx Instructions: take 1 PO TID PRN pain - take with food to avoid stomach upset Celebrex 100 mg capsule 100 mg PO BID PRN (Reason: pain) Qty: 20 0RF cyclobenzaprine 10 mg tablet 10 mg PO BID PRN (Reason: muscle spasm) Qty: 20 0RF Discharge Orders: Discharge ED (Routine); Ordered 01/10/22 Ordered By: Mejia Peterson Discharge Diet: Usual diet Discharge Activity: Limit activity as instructed Patient Instructions: Acute Wound Care (ED), Incision and Drainage (ED) Activity Restrictions/Additional Instructions: Thank you for visiting the emergency department. You were seen and evaluated for skin infection. You were found to have an abscess which was drained at bedside. You will be placed on antibiotics. Please follow-up with your primary care provider on Friday or return to the emergency department for packing change/removal. Please watch for signs of infection. Please return to the emergency department for signs of worsening infection or anything else that you are concerned about and feel needs emergency department evaluation. Coding Level of Care Code ED Academic Affairs Director for Kristie Morfin Exam Comprehensive
[2022-01-10 13:48] VITALS: BP 151/87; PULSE 99; RESP 16; O2SAT 99
[2022-01-10 15:09] VITALS: PULSE 92; RESP 16; O2SAT 99
== END 2022-01-10 15:13 | disposition home or self-care (01) ==
PROVIDERS: Emergency Provider Emergency Medicine
DX: N61.1 Abscess of the breast and nipple (principal); F17.200 Nicotine dependence, unspecified, uncomplicated
CPT/HCPCS: 10060; 99282

== ENCOUNTER 2022-01-14 15:19 | Emergency (ER) | payer BC, SELFPAY ==
[2022-01-14 15:28] VITALS: BP 127/87; PULSE 102; RESP 16; TEMP 36.3; O2SAT 96; BMI 40.3
--- NOTE | 2022-01-14 15:55 | W.ED.GENADLT ---
HPI - General Adult General: Chief complaint: Skin/Abscess/Foreign Body Stated complaint: skin abcess Time Seen by Provider: 01/14/22 15:33 History of Present Illness: Patient is a 36-year-old female who presented to the emergency room for wound check. Patient initially had I&D of an abscess of the right breast 4 days ago. The wound was packed. Patient came back to the emergency room to determine whether she needs repacking for the wound. Has been taking clindamycin since discharge. Patient denies Onset:4 days ago Duration:4 days Location:home Severity:mild Associated symptoms: Reports rash (+R breast incision wound); Deny chest pain, dyspnea, nausea, palpitations or vomiting Review of Systems Const: Denies: fever(s) or chills Eyes: Denies: change in vision ENMT: Denies: mouth pain Card: Denies: chest pain or palpitations Resp: Denies: dyspnea or non-productive cough GI: Denies: abdominal pain, nausea, vomiting or diarrhea : Denies: dysuria Musc: Denies: extremity pain Skin/Breast: Reports: rash (+R breast incision wound) Neuro: Denies: weakness in extremities Psych: Reports: other (Normal mood) Regan/Lymph: Denies: easy bruising PFSH ED PFSH: Medical History Skin abscess Social History Smoking and tobacco status: current every day smoker Female Reproductive History: Date of last menstrual period: 08/06/21 Physical Exam Const: COMMON NORMALS: alert HENMT: COMMON NORMALS: atraumatic HEAD & SCALP: atraumatic MOUTH: moist mucous membranes not abnormal Eye: COMMON NORMALS: EOMs intact bilaterally and conjunctivae normal CONJUNCTIVA: Yes conjunctivae normal Neck/C-Spine: COMMON NORMALS: full ROM and supple Resp: COMMON NORMALS: normal respiratory effort and clear to auscultation bilaterally AUSCULTATION: clear to auscultation bilaterally Cardio: COMMON NORMALS: regular rate RATE: regular rate GI: COMMON NORMALS: Soft to palpation and non-tender PALPATION: Yes Soft to palpation Extremity: COMMON NORMALS: full ROM Neuro: SENSORIUM/ORIENTATION: Yes alert MOTOR EXAM: No Abnormal motor strength present and Other motor observations present (no focal motor deficits) Psych: COMMON NORMALS: speech normal SPEECH: Yes normal speech MOOD & AFFECT: Yes euthymic mood Skin: OTHER: +R supraalveolar breast post incision site dry/clean/intact without any drainage, no probable fluctuance around the incision site. Course Vital Signs: Vital signs: Vital Signs Temperature 97.4 F L 01/14/22 15:28 Pulse Rate 102 H 01/14/22 15:28 Respiratory Rate 16 01/14/22 15:28 Blood Pressure 127/87 01/14/22 15:28 Pulse Oximetry 96 01/14/22 15:28 MDM - General Adult Medical Decision Making 36-year-old female presented to the emergency room for wound check after I&D that was performed 4 days ago. On exam, what appears to be well-healing. There is no palpable fluctuance. There are some contact dermatitis from the tape placement. Wound was repacked. Patient received Toradol for pain. Patient instructed to follow-up with [facility] for reassessment of wound in 3-4 days. Patient is instructed to continue taking clindamycin as instructed previously. I have given patient follow up with our employment evaluator/case manager to be seen by our outpatient [facility] for wound check and to establish care with a PCP. Patient aware of a call from our employment evaluator/case manager to schedule for appointment(s) and verbalizes understanding of the importance of following up. Disposition: Discharge. Patient counseled regarding diagnostic impression, treatment plan. Patient given ED strict return precautions to return for continuation, worsening, or development of new symptoms. Instructed to f/u w/ PCP regarding symptoms today. Patient verbalized understanding. Discharge Plan Discharge Patient Disposition: Home Clinical Impression: Wound check, abscess Condition: Stable Prescriptions: No Action glipizide 5 mg tablet extended release 24hr 5 mg PO DAILY Qty: 30 0RF Rx Instructions: Take daily after breakfast IBU 800 mg tablet 800 mg PO TID PRN (Reason: pain) Qty: 30 0RF Rx Instructions: take 1 PO TID PRN pain - take with food to avoid stomach upset Celebrex 100 mg capsule 100 mg PO BID PRN (Reason: pain) Qty: 20 0RF cyclobenzaprine 10 mg tablet 10 mg PO BID PRN (Reason: muscle spasm) Qty: 20 0RF clindamycin HCl 300 mg capsule 300 mg PO Q8H 10 Days Qty: 30 0RF Discharge Orders: Discharge ED (Routine); Ordered 01/14/22 Ordered By: Irma Pope Discharge Diet: Advance as tolerated Discharge Activity: Increase activity as tolerated Patient Instructions: Opioid Safety Activity Restrictions/Additional Instructions: Please go to the [facility] walkin clinic on Friday and for wound recheck. Call [phone] Come back to the emergency room have any new or concerning complaints. Stand Alone Forms: Work/School Release Coding Level of Care Code ED Steward/Stewardess Room for Chg Fwd Exam Comprehensive
[2022-01-14] MEDS: ketorolac 30 mg/mL INJ IM (16:10)
--- NOTE | 2022-01-23 13:34 | DCPLANNER ---
manager custom had message to speak with patient about getting established with a primary care physician. manager custom will get patient established with Dr. Aguilar at [facility], after stress test is scheduled.
== END 2022-01-14 16:14 | disposition home or self-care (01) ==
PROVIDERS: Emergency Provider Emergency Medicine
DX: Z48.00 Encounter for change or removal of nonsurgical wound dressing (principal); L25.8 Unspecified contact dermatitis due to other agents; F17.200 Nicotine dependence, unspecified, uncomplicated
CPT/HCPCS: 96372; 99283; J1885

== ENCOUNTER 2022-01-16 18:13 | Emergency (ER) | payer BC, SELFPAY ==
[2022-01-16 18:18] VITALS: BP 150/96; PULSE 101; RESP 18; TEMP 36.3; O2SAT 98; BMI 39.4
--- NOTE | 2022-01-16 18:25 | XRR_ITS ---
PROCEDURE INFORMATION: Exam: XR Chest Exam date and time: 01/16/2022 7:12 PM Age: 36 years old Clinical indication: Pain; Angina pectoris; Additional info: Chest pain TECHNIQUE: Imaging protocol: XR of the chest. Views: 1 view. COMPARISON: CR Chest 2 views* [id number] 03/11/2019 10:14 PM FINDINGS: Lungs: Unremarkable. No consolidation. Pleural spaces: Unremarkable. No pleural effusion. No pneumothorax. Heart/Mediastinum: Unremarkable. No cardiomegaly. Bones/joints: Unremarkable. XR/XR chest 1V portable [id number] IMPRESSION: No acute findings.
--- NOTE | 2022-01-16 18:26 | ECG_ITS ---
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 Measurements Intervals [place] Rate: 91 P: 62 DC: 207 QRS: -76 QRSD: 106 T: 34 QT: 371 QTc: 457 Interpretive Statements SINUS RHYTHM LEFT AXIS DEVIATION [QRS AXIS < -30] INCOMPLETE RIGHT BUNDLE BRANCH BLOCK [90+ ms QRS DURATION, TERMINAL R IN V1/V2, 40+ ms S IN I/aVL/V4/V5/V6] ANTEROSEPTAL MYOCARDIAL INFARCTION , OF INDETERMINATE AGE [40+ ms Q WAVE IN V1-V4] Compared to ECG 01/16/2022 18:23:00 Left-axis deviation now present Sinus tachycardia no longer present Atrial abnormality no longer present Right ventricular hypertrophy no longer present Myocardial infarct finding still present Electronically Signed On 01-16-2022 23:29:36 CDT by Deborah Vázquez M.D. [id number]
--- NOTE | 2022-01-16 18:43 | W.ED.CHESTPA ---
HPI - Chest Pain General: Chief Complaint: Chest Pain Stated Complaint: Chest Pain\Hand Tingling\Rt Shoulder Pain\SOB Time Seen by Provider: 01/16/22 18:42 History of Present Illness: Ms. Caballero is a 36-year-old lady with history of hypertension, obesity, diabetes who presents to the emergency department due to chest pain and shortness of breath. Symptom onset was approximately 2 hours prior to arrival and sudden while at work. She denies known specific provoking factor or history of similar. She endorses sharp aching pain in the right chest with radiation down the right arm and shoulder. She has moderate to severe intensity discomfort and moderate shortness of breath. She did have an episode of nausea and vomiting associated with this. Denies diarrhea or abdominal pain. No cold sweats or fevers. Overall course of symptoms has persisted. Worse with exertion. No other specific changes in health, exacerbating, or alleviating factors identified. Onset (ago): hour(s) Timing of current episode: constant Prior episodes: No Onset: during exertion Pain location: right chest Pain radiation: right arm and right shoulder Severity: moderate Quality: tightness and heaviness Relieving factors: nothing Exacerbating factors: exertion Associated symptoms: Reports nausea and vomiting Review of Systems General: Reports: 10 or more systems reviewed and unremarkable except in HPI and below GI: Reports: nausea and vomiting PFSH ED PFSH: Medical History Skin abscess Family History (Updated 01/16/22 @ 19:15 by Mejia Peterson MD) Father , at 55 of [place] Family history of premature coronary artery disease Denies family history of Clotting disorder Bleeding disorder Social History Smoking and tobacco status: current every day smoker Female Reproductive History: Date of last menstrual period: 12/26/21 Physical Exam Const: COMMON NORMALS: alert GENERAL APPEARANCE: cooperative, well developed and ill appearing (Mildly) NUTRITIONAL APPEARANCE: obese HENMT: COMMON NORMALS: normocephalic and atraumatic HEAD & SCALP: normocephalic and atraumatic Eye: COMMON NORMALS: conjunctivae normal CONJUNCTIVA: Yes conjunctivae normal SCLERA: sclerae normal Neck/C-Spine: COMMON NORMALS: supple GENERAL: Yes trachea midline Resp: COMMON NORMALS: normal respiratory effort EFFORT & INSPECTION: Yes able to speak in complete sentences Cardio: COMMON NORMALS: regular rhythm RATE: tachycardic RHYTHM: regular rhythm GI: COMMON NORMALS: Soft to palpation PALPATION: Yes Soft to palpation and No Tenderness to palpation present (GI) PERCUSSION: normal to percussion Extremity: GENERAL: Yes normal exam except as noted and No edema Neuro: COMMON NORMALS: moves all extremities SENSORIUM/ORIENTATION: Yes alert and No Orientation impaired Psych: COMMON NORMALS: mental status grossly normal and Normal thought process present THOUGHT PROCESS: Normal thought process present Skin: NARRATIVE SKIN EXAM: Prior incision and drainage site on right breast appears to have had adverse reaction to adhesive however no obvious evidence of deep tracking infection. Course ED course: - Patient was seen and evaluated by me at bedside - Patient placed on cardiac monitors, IV access obtained - Initial evaluation notable for exam as above - Labs and xrays personally interpreted by me. EKGs at 1823 and 2134 personally interpreted by me. Sinus rhythm present. No STEMI. On the second EKG there is nonspecific ST segment abnormalities with T wave flattening inferiorly. - Aspirin, fluids, GI cocktail, and nitroglycerin ordered - Labs notable for no leukocytosis, hemoconcentration similar to prior. Metabolic panel with mild evidence of intravascular depletion, hyperglycemia without evidence of DKA. Delta troponin negative. - Imaging notable for no lobar consolidation or pneumothorax on chest x-ray. Given symptoms on the side of previous ID without other specific cause CT felt to be warranted. No acute abnormality identified to explain symptoms. - Upon serial reexamination after treatment the patient was mildly improved. I did repack the patient's wound, appears to be well-healing without evidence of superimposed infection, I would expect 1 more follow-up visit for packing removal and then local wound care - Based on patient history, evaluation, and testing as interpreted the most likely cause of the patient's condition is chest pain of uncertain etiology. - The results of ED evaluation were discussed with the patient including possible disposition options. I believe that the patient is moderate risk by heart score. One of her EKG showed nonspecific ST segment flattening, she has greater than 3 cardiac risk factors, and story is moderately suspicious at least. I discussed risk ratification by heart score including estimated risk of major adverse cardiac events. I offered admission however the patient is comfortable with outpatient follow-up. I will message case management for outpatient cardiac stress test. I discussed prescriptions and/or symptomatic cares (if applicable) including appropriate and responsible use, followup plan, and return precautions. The patient verbalized understanding and felt safe for discharge. - Patient discharged in satisfactory condition. Note: Click bubbles or prepopulated donohue in note writing are used for assistance with data collection and billing and are inherently more limited than narrative and other text portions of this note. Please use narrative for additional clinical history and defer to narrative/free test for any case of contradictory information. If information appears in only free text or click bubble it should be considered present or absent as reported. Please contact note designer/writer for clarifications of clinical information or contradictory information. MDM is a brief summary, contradictory or erroneous seeming information should be clarified and full note should be reviewed. Vital Signs: Vital signs: Vital Signs Temperature 97.3 F L 01/16/22 18:18 Pulse Rate 99 01/16/22 21:18 Respiratory Rate 16 01/16/22 18:45 Blood Pressure 128/72 01/16/22 21:18 Pulse Oximetry 96 01/16/22 21:18 MDM - Chest Pain Medical Decision Making 36-year-old lady presenting with right-sided chest pain with radiation down the arm associated with nausea and shortness of breath. Symptoms improved with ED treatment. Negative delta troponin. I offered admission for moderate risk heart score versus outpatient follow-up. Patient prefers outpatient follow-up and case management will be messaged for assistance. Satisfactory for discharge with strict return precautions. Medical Records I reviewed the patient's medical records. Lab Data I reviewed the patient's lab results. : 01/16/22 18:55 01/16/22 18:55 Radiology Impressions Chest X-Ray 01/16/22 18:25 IMPRESSION: No acute findings. Chest CT 01/16/22 20:32 IMPRESSION: No acute findings. Laboratory Results WBC 7.8 10^3/uL (4.0-10.0) 01/16/22 18:55 RBC 5.84 10^6/uL (4.1-5.3) H 01/16/22 18:55 Hgb 16.7 g/dL (11.5-15.3) H 01/16/22 18:55 Hct 48.1 % (37.0-47.0) H 01/16/22 18:55 MCV 82.4 fl (81-99) 01/16/22 18: MCH 28.6 pg (28.0-34.0) 01/16/22 18: MCHC 34.7 g/dL (30.0-36.0) 01/16/22 18: RDW 12.7 % (12.1-15.1) 01/16/22 18: Plt Count 306 10^3/cmm (130-400) 01/16/22 18: MPV 9.7 fL (7.4-10.4) 01/16/22 18: Neut % (Auto) 64.8 % 01/16/22 18: Lymph % (Auto) 25.3 % 01/16/22 18: [place] % (Auto) 6.2 % 01/16/22 18: Eos % (Auto) 3.1 % 01/16/22 18: Baso % (Auto) 0.3 % 01/16/22 18: Neut # (Auto) 5.07 10^3/uL (1.8-7.7) 01/16/22 18: Lymph # (Auto) 2.0 10^3/uL (0.8-4.8) 01/16/22 18: [place] # (Auto) 0.5 10^3/uL (0.2-0.9) 01/16/22 18: Eos # (Auto) 0.2 10^3/uL (0.0-0.8) 01/16/22 18: Baso # (Auto) 0.0 10^3/uL (0.0-0.1) 01/16/22 18: Nucleated RBC % (auto) 0 % 01/16/22 18: Nucleated RBCs # 0.0 /100WBC 01/16/22 18: D-Dimer 0.40 ug/mIFEU (0-0.59) 01/16/22 18: Sodium 133 mmol/L (136-145) L 01/16/22 18: Potassium 4.0 mmol/L (3.5-5.1) 01/16/22 18: Chloride 96 mmol/L (98-107) L 01/16/22 18: Carbon Dioxide 23 mmol/L (22-29) 01/16/22 18:55 Anion Gap 18.0 (5-19) 01/16/22 18:55 BUN 12 mg/dL (6-20) 01/16/22 18:55 Creatinine 0.3 mg/dL (0.5-0.9) L 01/16/22 18:55 GFR Calculation 250.3 mL/min (90-130) H 01/16/22 18:55 Glucose 305 mg/dL (65-115) H 01/16/22 18:55 Calculated Osmolality 287 mOsm/kg (285-295) 01/16/22 18:55 Calcium 9.0 mg/dL (8.5-10.5) 01/16/22 18:55 Troponin T Baseline 6 ng/L (0-10) 01/16/22 18:55 Troponin T 120 Minute 6.22 ng/L (0-10) 01/16/22 21:11 Delta Troponin T 0.22 ABS# (0-10) 01/16/22 21:11 Lipase 19 U/L (13-60) 01/16/22 18:55 HCG, Qual Negative (Negative) 01/16/22 18:55 Discharge Plan Discharge Patient Disposition: Home Clinical Impression: Chest pain, Dehydration Condition: Stable Prescriptions: New oxycodone 5 mg tablet 5 mg PO Q4H PRN (Reason: pain) Qty: 10 0RF No Action glipizide 5 mg tablet extended release 24hr 5 mg PO DAILY Qty: 30 0RF Rx Instructions: Take daily after breakfast IBU 800 mg tablet 800 mg PO TID PRN (Reason: pain) Qty: 30 0RF Rx Instructions: take 1 PO TID PRN pain - take with food to avoid stomach upset Celebrex 100 mg capsule 100 mg PO BID PRN (Reason: pain) Qty: 20 0RF cyclobenzaprine 10 mg tablet 10 mg PO BID PRN (Reason: muscle spasm) Qty: 20 0RF clindamycin HCl 300 mg capsule 300 mg PO Q8H 10 Days Qty: 30 0RF Discharge Orders: Discharge ED (Routine); Ordered 01/16/22 Ordered By: Mejia Peterson Discharge Diet: Usual diet Discharge Activity: Resume usual activity Patient Instructions: Chest Pain (ED), Opioid Safety Activity Restrictions/Additional Instructions: Thank you for visiting the emergency department. You were seen and evaluated for chest pain. The exact cause of your symptoms is unclear, as discussed I do believe that you are moderate risk by heart score and do require further cardiac testing. Please follow-up with your primary care provider. Please continue wound care as discussed. Please return to the emergency department for worsening symptoms or anything else that you are concerned about and feel needs emergency department evaluation. Coding Level of Care Code ED Last Sawyer for Chg Fwd Exam Comprehensive
[2022-01-16 18:45] VITALS: BP 142/94; PULSE 105; RESP 16; O2SAT 97
[2022-01-16 19:08] LABS: Basophils % 0.3 %; Eosinophils # 0.2 10^3/uL (0.0-0.8); Eosinophils % 3.1 %; Hematocrit 48.1 % (37.0-47.0); Hemoglobin 16.7 g/dL (11.5-15.3); Lymphocytes % 25.3 %; Mean Corpuscular HGB Conc 34.7 g/dL (30.0-36.0); Mean Corpuscular Hemoglobin 28.6 pg (28.0-34.0); Mean Corpuscular Volume 82.4 fl (81-99); Mean Platelet Volume 9.7 fL (7.4-10.4); Monocytes # 0.5 10^3/uL (0.2-0.9); Monocytes % 6.2 %; Neutrophils # 5.07 10^3/uL (1.8-7.7); Neutrophils % 64.8 %; Nucleated Red Blood Cells % 0 %; Platelet Count 306 10^3/cmm (130-400); Red Blood Count 5.84 10^6/uL (4.1-5.3); Red Cell Distribution Width 12.7 % (12.1-15.1); White Blood Count 7.8 10^3/uL (4.0-10.0)
[2022-01-16] MEDS: aspirin 81 mg Chew Tablet 324 MG PO (19:37)
[2022-01-16] MEDS: nitroglycerin 0.4 mg sublingual Tablet SUBLINGUAL (19:37)
[2022-01-16 19:42] LABS: Blood Urea Nitrogen 12 mg/dL (6-20); Carbon Dioxide 23 mmol/L (22-29); Chloride 96 mmol/L (98-107); Glomerular Filtration Rate 250.3 mL/min (90-130); Glucose 305 mg/dL (65-115); Lipase 19 U/L (13-60); Osmolality Calculated 287 mOsm/kg (285-295); Sodium 133 mmol/L (136-145)
[2022-01-16 19:43] LABS: Troponin(5th) Baseline 6 ng/L (0-10)
--- NOTE | 2022-01-16 20:26 | ECG_ITS ---
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 Measurements Intervals [place] Rate: 100 P: 71 GA: 177 QRS: 263 QRSD: 97 T: 67 QT: 362 QTc: 467 Interpretive Statements SINUS TACHYCARDIA INCOMPLETE RIGHT BUNDLE BRANCH BLOCK [90+ ms QRS DURATION, TERMINAL R IN V1/V2, 40+ ms S IN I/aVL/V4/V5/V6] RIGHT VENTRICULAR HYPERTROPHY [SOME/ALL OF: PROMINENT R IN V1, LATE TRANSITION, RAD, JAKOB, SSS] POSSIBLE ANTERIOR MYOCARDIAL INFARCTION , OF INDETERMINATE AGE [30 ms Q WAVE IN V3/V4, OR R < 0.2 mV IN V4] Compared to ECG 10/18/2018 20:54:14 Atrial abnormality now present Right ventricular hypertrophy now present Left anterior fascicular block no longer present Myocardial infarct finding still present Electronically Signed On 01-17-2022 18:15:53 CDT by Alexi Nowak M.D. [id number]
[2022-01-16 20:30] VITALS: BP 149/83; PULSE 98; O2SAT 95
--- NOTE | 2022-01-16 20:32 | CTR_ITS ---
PROCEDURE INFORMATION: Exam: CT Chest With Contrast; Diagnostic Exam date and time: 01/16/2022 9:27 PM Age: 36 years old Clinical indication: Pain; Right-sided; Additional info: Right chest and arm pain, HX abscess i d, ? deep infection TECHNIQUE: Imaging protocol: Diagnostic computed tomography of the chest with contrast. Radiation optimization: All CT scans at this facility use at least one of these dose optimization techniques: automated exposure control; mA and/or kV adjustment per patient size (includes targeted exams where dose is matched to clinical indication); or iterative reconstruction. Contrast material: OMNI 300; Contrast volume: 100 ml; Contrast route: INTRAVENOUS (IV); COMPARISON: CR (CHEST, ) 01/16/2022 7:12 PM RADIATION DOSE METRICS: Total DLP (mGy-cm): 862.59 FINDINGS: Lungs: Unremarkable. No consolidation. No masses. Pleural spaces: Unremarkable. No pneumothorax. No pleural effusion. Heart: Unremarkable. No cardiomegaly. No pericardial effusion. Lymph nodes: Unremarkable. No enlarged lymph nodes. Aorta: Unremarkable. No aortic aneurysm. Bones/joints: Unremarkable. No acute fracture. Soft tissues: No walled-off fluid collection/abscess. CT/CT chest w con* [id number] IMPRESSION: No acute findings.
[2022-01-16] MEDS: lactated ringers 1,000 ML 999 ML IV (20:39)
[2022-01-16 21:10] LABS: HCG, Serum Qual Negative (Negative)
[2022-01-16 21:18] VITALS: BP 128/72; PULSE 99; O2SAT 96
[2022-01-16] MEDS: iohexol 300 mg/mL 100 mL Btl IV (21:24)
[2022-01-16] MEDS: lidocaine 2% viscous 15 ML, aluminum-mag hydrox-simethicon 30 ML, sucralfate oral liq 1 GM PO (21:25)
[2022-01-16 21:40] LABS: Troponin 5 2HR 6.22 ng/L (0-10)
[2022-01-16 21:55] LABS: Troponin 5 2HR Delta 0.22 ABS# (0-10)
--- NOTE | 2022-01-22 09:52 | DCPLANNER ---
Addendum entered by Anna Holly 03/01/22 17:10: Patient had a follow up appointment scheduled for a stress test and a follow up appointment with Dr. Aguilar - patient did not attend either of the appointments. Addendum entered by Anna Holly 02/07/22 21:42: Patient has a stress test scheduled for Sunday, February 27, 2022 at 11:30. Original Note: department store manager had message to schedule an outpatient stress test for patient. department store manager spoke with patient, she stated that she did want the stress test scheduled and that she does not have a primary care physician, but would like to get set up with one. department store manager will schedule an appointment for patient with Dr. Aguilar after the stress test is scheduled. department store manager faxed signed order for stress test to centralized scheduling, who will call patient with appointment information.
--- NOTE | 2022-02-20 17:22 | DCPLANNER ---
Patient has a stress test scheduled for 02.27.22, caseworker intake was to schedule a follow up appointment for patient with Dr. Aguilar to establish care and to go over the results of the stress test. cattle manager scheduled a follow up appointment for patient for February at 10:[address] Aguilar. cattle manager called patient and gave patient the appointment information.
== END 2022-01-16 23:07 | disposition home or self-care (01) ==
PROVIDERS: Emergency Medicine; Emergency Provider Emergency Medicine
DX: R07.9 Chest pain, unspecified (principal); I10 Essential (primary) hypertension; E66.9 Obesity, unspecified; Z68.39 Body mass index [BMI] 39.0-39.9, adult; E11.9 Type 2 diabetes mellitus without complications; F17.210 Nicotine dependence, cigarettes, uncomplicated; E86.0 Dehydration
CPT/HCPCS: 71045; 71260; 80048; 83690; 84484; 84703; 85025; 85378; 93005; 96360; 99284; Q9967

== ENCOUNTER 2023-07-19 19:24 | Emergency (ER) | payer BC, SELFPAY ==
[2023-07-19 19:26] VITALS: BP 158/100; PULSE 127; RESP 18; TEMP 36.3; O2SAT 96; BMI 40.3
[2023-07-19 19:45] VITALS: O2SAT 97
--- NOTE | 2023-07-19 19:49 | W.ED.ABDPA2 ---
HPI - Abdominal Pain General: Chief Complaint: Abdominal Pain Stated Complaint: upper right side pian Time Seen by Provider: 07/19/23 19:29 Source: patient Mode of arrival: ambulatory Limitations: no limitations History of Present Illness: Patient presents to the emergency department today for evaluation treatment of complaints of right upper quadrant and right upper flank pain. Patient states she had onset of discomfort this morning which has worsened throughout the day-especially in the last couple of hours when she felt a bubble form over her right upper abdomen. Patient reports all she ate today was a biscuit and states it was only because she felt shaky . She has felt nauseated but has not had any vomiting. She did have a large bowel movement today but no diarrhea. Patient also complains of some generalized left lower abdominal discomfort-noted as less severe than the right upper quadrant. Patient reports reflux and heartburn over the last week or so. She has been taking [id number] medications without noticeable improvement of symptoms. She denies any other symptoms of illness including fever, cough, or congestion. Chart review showed that she presented with some right-sided chest pain and shoulder pain in the past and had a full cardiac evaluation however, patient states his pain is totally different and denies any discomfort in her chest. Review of Systems General: Reports: 10 or more systems reviewed and unremarkable except in HPI and below PFSH ED PFSH: Medical History Skin abscess Family History Father , at 55 of [place] Family history of premature coronary artery disease Denies family history of Clotting disorder Bleeding disorder Social History Smoking and tobacco/nicotine status: current every day tobacco/nicotine user Physical Exam Const: COMMON NORMALS: no acute distress, patient oriented x3 and alert HENMT: COMMON NORMALS: normocephalic, atraumatic, hearing grossly normal bilaterally and moist oral mucous membranes HEAD & SCALP: normocephalic and atraumatic Eye: COMMON NORMALS: Equal, round and reactive pupils present, EOMs intact bilaterally and conjunctivae normal CONJUNCTIVA: Yes conjunctivae normal PUPIL: Yes Equal, round and reactive pupils present Neck/C-Spine: COMMON NORMALS: full ROM and no JVD Lymph: LYMPHATIC: no lymphadenopathy noted Chest: OTHER: Patient is profusely tender around the right lateral distal ribs and posterior ribs. There is noticeable swelling in this area without overlying signs of wound. No signs of erythema concerning for cellulitis. Resp: COMMON NORMALS: normal respiratory effort, No retractions, No use of accessory muscles and clear to auscultation bilaterally AUSCULTATION: clear to auscultation bilaterally Cardio: COMMON NORMALS: no JVD, regular rate and regular rhythm RATE: regular rate RHYTHM: regular rhythm GI: OTHER: Patient with normoactive bowel sounds throughout. Abdomen is generally soft and patient is only tender to the more lateral right upper quadrant region. No epigastric tenderness. Very little noticeable discomfort on palpation in the left lower quadrant. No suprapubic tenderness. : COMMON NORMALS: Yes no CVA tenderness BLADDER/KIDNEY EXAM: Yes no CVA tenderness Back/Pelvis: COMMON NORMALS: no CVA tenderness, no thoracic nor lumbar tenderness and thoraco-lumbar ROM normal Extremity: COMMON NORMALS: normal to inspection, full ROM and capillary refill normal Neuro: COMMON NORMALS: patient oriented x3 SENSORIUM/ORIENTATION: Yes alert Psych: COMMON NORMALS: mental status grossly normal, Normal thought process present, cooperative, normal affect and activity/motor behavior normal THOUGHT PROCESS: Normal thought process present Skin: COMMON NORMALS: no rashes or lesions noted and no wounds GENERAL SKIN EXAM: no rashes or lesions noted Course Vital Signs: Vital signs: Vital Signs Temperature 97.4 F L 07/19/23 19:26 Pulse Rate 106 H 07/19/23 23:01 Respiratory Rate 18 07/19/23 23:01 Blood Pressure 160/77 07/19/23 23:01 Pulse Oximetry 95 07/19/23 23:01 Oxygen Delivery Me thod Room Air 07/19/23 19:45 MDM - Abdominal Pain Medical Decision Making Patient's abdominal examination was generally benign. She does have very lateral right upper quadrant pain but, seems to be in the area of the ribs rather than the abdominal cavity. Patient's lab work shows no signs of an elevated white blood cell count and no elevated LFTs or lipase. Given that the patient was also complaining of some left lower quadrant discomfort we did go ahead and perform a CT scan which revealed no acute intra-abdominal findings but, I did have a second opinion provided by Dr. Leroy as there appeared to be a noticeable amount of soft tissue stranding and edema noted along the distal and lateral right rib region. We discussed the possibility of musculoskeletal injury as cause for her swelling and tenderness in this area. Patient had some blood in her urine. She indicates she is have been having some spotting the last couple of days after her most recent menstrual cycle. Went over the CT exam findings. She is unaware of any specific injury to her ribs either from working, lifting, pushing, or pulling anything heavy. Patient is off the next couple of days from work and I did provide her 1 extra day as it will be very important that she be able to rest and take her medications. Encouraged application of heat or ice for comfort in addition to the prescribed medication regimen. She was given strict return precautions and recommended a follow-up appointment with primary care if needed for continued discomfort in this area. Patient verbalized understanding and agreement to treatment plan. Differential Diagnosis Unlikely abdominal pain, acute appendicitis, calculus of kidney, constipation, gastroenteritis, pancreatitis or small bowel obstruction Lab Data 07/19/23 19:45 07/19/23 19:45 Labs/Radiology: Radiology Impressions Abdomen/Pelvis CT 07/19/23 20:34 IMPRESSION: 1. No bowel obstruction or inflammatory process associated with the bowel. 2. No free air or significant free fluid in the abdomen or pelvis. 3. The appendix images normally. 4. Hydronephrosis or renal calculus. No stone in the bladder. Laboratory Results WBC 7.96 10^3/uL (3.29-11.43) 07/19/23 19:45 RBC 6.07 10^6/uL (3.85-5.65) H 07/19/23 19:45 Hgb 17.70 g/dL (11.27-16.99) H 07/19/23 19:45 Hct 50.2 % (36-47) H 07/19/23 19:45 MCV 82.7 fl (85-98) L 07/19/23 19:45 MCH 29.2 pg (27-33) 07/19/23 19:45 MCHC 35.3 g/dL (30-55) 07/19/23 19:45 RDW 12.7 % (12.1-15.1) 07/19/23 19:45 Plt Count 296 10^3/cmm (157-399) 07/19/23 19:45 MPV 9.8 fL (7.4-10.4) 07/19/23 19:45 Neut % (Auto) 63.4 % 07/19/23 19:45 Lymph % (Auto) 27.6 % 07/19/23 19:45 [place] % (Auto) 5.9 % 07/19/23 19:45 Eos % (Auto) 2.4 % 07/19/23 19:45 Baso % (Auto) 0.4 % 07/19/23 19:45 Neut # (Auto) 5.05 10^3/uL (1.8-7.7) 07/19/23 19:45 Lymph # (Auto) 2.2 10^3/uL (0.8-4.8) 07/19/23 19:45 [place] # (Auto) 0.5 10^3/uL (0.2-0.9) 07/19/23 19:45 Eos # (Auto) 0.2 10^3/uL (0.0-0.8) 07/19/23 19:45 Baso # (Auto) 0.0 10^3/uL (0.0-0.1) 07/19/23 19:45 Nucleated RBC % (auto) 0 % 07/19/23 19:45 Nucleated RBCs # 0.0 /100WBC 07/19/23 19:45 Sodium 134 mmol/L (136-145) L 07/19/23 19:45 Potassium 3.8 mmol/L (3.5-5.1) 07/19/23 19:45 Chloride 97 mmol/L (98-107) L 07/19/23 19:45 Carbon Dioxide 25 mmol/L (22-29) 07/19/23 19:45 Anion Gap 15.8 (5-19) 07/19/23 19:45 BUN 13 mg/dL (6-20) 07/19/23 19:45 Creatinine 0.6 mg/dL (0.5-0.9) 07/19/23 19:45 GFR Calculation 111.9 mL/min (90-130) 07/19/23 19:45 Glucose 325 mg/dL (65-115) H 07/19/23 19:45 Calculated Osmolality 291 mOsm/kg (285-295) 07/19/23 19:45 Calcium 9.4 mg/dL (8.5-10.5) 07/19/23 19:45 Total Bilirubin 0.3 mg/dL (0.15-1.2) 07/19/23 19:45 AST 13 U/L (0-32) 07/19/23 19:45 ALT 19 U/L (0-33) 07/19/23 19:45 Alkaline Phosphatase 84 U/L (35-105) 07/19/23 19:45 Total Protein 7.5 g/dL (6.6-8.7) 07/19/23 19:45 Albumin 4.5 g/dL (3.5-5.2) 07/19/23 19:45 Globulin 3.0 g/dL (1.3-4.6) 07/19/23 19:45 Lipase 23 U/L (13-60) 07/19/23 19:45 HCG, Qual Negative (Negative) 07/19/23 21:14 Urine Color Yellow (Yellow) 07/19/23 21:14 Urine Appearance Hazy (CLEAR) A 07/19/23 21:14 Urine pH 5 (5-7) 07/19/23 21:14 Ur Specific [place] 1.020 (1.005-1.030) 07/19/23 21:14 Urine Protein Neg (Negative) 07/19/23 21:14 Urine Glucose (UA) 4+ (Normal) H 07/19/23 21:14 Urine Ketones Negative (Negative) 07/19/23 21:14 Urine Blood 2+ (Negative) H 07/19/23 21:14 Urine Nitrate Negative (Negative) 07/19/23 21:14 Urine Bilirubin Neg (Negative) 07/19/23 21:14 Urine Urobilinogen Neg mg/dL (Negative) 07/19/23 21:14 Ur Leukocyte Esterase Negative (Negative) 07/19/23 21:14 Urine RBC Rare /hpf (0-2) 07/19/23 21:14 Urine WBC Rare /hpf (0-5) 07/19/23 21:14 Ur Squamous Epith Cells 0-4 /hpf (0-5) H 07/19/23 21:14 Amorphous Sediment 1+ /hpf 07/19/23 21:14 Urine Bacteria 2+ /hpf (NONE) H 07/19/23 21:14 All radiology interpretation(s) finalized by discharge Discharge Plan Discharge Patient Disposition: Home Clinical Impression: Musculoskeletal pain Condition: Stable Prescriptions: New prednisone 20 mg tablet 20 mg PO BID 5 Days Qty: 10 0RF tizanidine 4 mg capsule 4 mg PO Q8H PRN (Reason: muscle spasticity) Qty: 20 0RF naproxen 500 mg tablet 500 mg PO BID PRN (Reason: pain) Qty: 20 0RF Voltaren Arthritis Pain 1 % gel 4 g topical QID Qty: 100 0RF Rx Instructions: apply to right ribs No Action glipizide 5 mg tablet extended release 24hr 5 mg PO DAILY Qty: 30 0RF Rx Instructions: Take daily after breakfast IBU 800 mg tablet 800 mg PO TID PRN (Reason: pain) Qty: 30 0RF Rx Instructions: take 1 PO TID PRN pain - take with food to avoid stomach upset Celebrex 100 mg capsule 100 mg PO BID PRN (Reason: pain) Qty: 20 0RF cyclobenzaprine 10 mg tablet 10 mg PO BID PRN (Reason: muscle spasm) Qty: 20 0RF oxycodone 5 mg tablet 5 mg PO Q4H PRN (Reason: pain) Qty: 10 0RF Discharge Orders: Discharge ED (Routine); Ordered 07/19/23 Ordered By: Jenniffer Nathan Discharge Diet: Usual diet Discharge Activity: Increase activity as tolerated Activity Restrictions/Additional Instructions: Lab work today shows no signs of infection. Markers for liver function and gallbladder concerns are all within normal limits as well. CT examination showed no acute concerns inside the abdomen however, there is noted inflammation and swelling to your right lateral/inferior rib region. This is suspicious for an underlying muscle injury and musculoskeletal problems. We will treat symptomatically for this finding and encourage you to take it easy for the next several days without any heavy lifting, pushing, or pulling. I have also given you an extra day off work to allow you to continue taking your medications on time and to rest. You may put a heating pad or an ice pack to this area as well for 15 to 20 minutes, multiple times throughout the day as needed for comfort as well. Continue to monitor and follow-up with primary care if needed for any residual discomfort not responding to treatment. Stand Alone Forms: Work/School Release Coding Level of Care Code ED End Touching Machine Operator for Chg Fwd
[2023-07-19 20:02] LABS: Basophils % 0.4 %; Eosinophils # 0.2 10^3/uL (0.0-0.8); Eosinophils % 2.4 %; Hematocrit 50.2 % (36-47); Lymphocytes # 2.2 10^3/uL (0.8-4.8); Lymphocytes % 27.6 %; Mean Corpuscular HGB Conc 35.3 g/dL (30-55); Mean Corpuscular Hemoglobin 29.2 pg (27-33); Mean Corpuscular Volume 82.7 fl (85-98); Mean Platelet Volume 9.8 fL (7.4-10.4); Monocytes # 0.5 10^3/uL (0.2-0.9); Monocytes % 5.9 %; Neutrophils # 5.05 10^3/uL (1.8-7.7); Neutrophils % 63.4 %; Nucleated Red Blood Cells % 0 %; Platelet Count 296 10^3/cmm (157-399); Red Blood Count 6.07 10^6/uL (3.85-5.65); Red Cell Distribution Width 12.7 % (12.1-15.1); White Blood Count 7.96 10^3/uL (3.29-11.43)
[2023-07-19 20:15] LABS: Alanine Aminotransferase 19 U/L (0-33); Albumin Level 4.5 g/dL (3.5-5.2); Alkaline Phosphatase 84 U/L (35-105); Anion Gap 15.8 (5-19); Aspartate Amino Transferase 13 U/L (0-32); Blood Urea Nitrogen 13 mg/dL (6-20); Calcium 9.4 mg/dL (8.5-10.5); Carbon Dioxide 25 mmol/L (22-29); Chloride 97 mmol/L (98-107); Creatinine Clr Calc Pharmacy 151.4392; Glomerular Filtration Rate 111.9 mL/min (90-130); Glucose 325 mg/dL (65-115); Lipase 23 U/L (13-60); Osmolality Calculated 291 mOsm/kg (285-295); Potassium 3.8 mmol/L (3.5-5.1); Sodium 134 mmol/L (136-145); Total Bilirubin 0.3 mg/dL (0.15-1.2); Total Protein 7.5 g/dL (6.6-8.7)
[2023-07-19] MEDS: sodium chloride 0.9% 1,000 ML 999 ML IV (20:18)
[2023-07-19] MEDS: ketorolac 30 mg/mL INJ IVP (20:19)
--- NOTE | 2023-07-19 20:34 | CTR_ITS ---
PROCEDURE INFORMATION: Exam: CT Abdomen And Pelvis With Contrast Exam date and time: 07/19/2023 9:31 PM Age: 37 years old Clinical indication: Abdominal pain; Generalized; Patient HX: Diffuse abd pain more so on RT than lt. ; Additional info: Pain, ruq/rt flank pain, llq pain TECHNIQUE: Imaging protocol: Computed tomography of the abdomen and pelvis with contrast. Radiation optimization: All CT scans at this facility use at least one of these dose optimization techniques: automated exposure control; mA and/or kV adjustment per patient size (includes targeted exams where dose is matched to clinical indication); or iterative reconstruction. Contrast material: OMNI 350; Contrast volume: 100 ml; Contrast route: INTRAVENOUS (IV); REPORTING DATA: Count of CT and Cardiac NM exams in prior 12 months: This patient has received 0 known CTs and 0 known cardiac nuclear medicine studies in the 12 months prior to the current study. COMPARISON: CT chest w con* [id number] 01/16/2022 9:27 PM RADIATION DOSE METRICS: Total DLP (mGy-cm): 944.4 FINDINGS: Liver: Normal. No mass. Gallbladder and bile ducts: Normal. No calcified stones. No ductal dilation. Pancreas: Normal. No ductal dilation. Spleen: Normal. No splenomegaly. Adrenal glands: Normal. No mass. Kidneys and ureters: Normal. No hydronephrosis. Stomach and bowel: Unremarkable. No obstruction. No mucosal thickening. Appendix: No evidence of appendicitis. Intraperitoneal space: Unremarkable. No free air. No significant fluid collection. Vasculature: Unremarkable. No abdominal aortic aneurysm. Lymph nodes: Unremarkable. No enlarged lymph nodes. Urinary bladder: Unremarkable as visualized. Reproductive: Unremarkable as visualized. Bones/joints: Unremarkable. No acute fracture. Soft tissues: Unremarkable. CT/CT abdomen pelvis w con* [id number] IMPRESSION: 1. No bowel obstruction or inflammatory process associated with the bowel. 2. No free air or significant free fluid in the abdomen or pelvis. 3. The appendix images normally. 4. Hydronephrosis or renal calculus. No stone in the bladder.
[2023-07-19 21:22] LABS: HCG Qualitative Urine. Negative (Negative)
[2023-07-19] MEDS: iohexol 350 mg/mL 500 mL Btl (per mL) IV (21:35)
[2023-07-19 21:42] LABS: Add Urine Culture? Yes; Add Urine Microscopic? YES; Amorphous Sediment Urine 1+ /hpf; Bacteria Urine 2+ /hpf; Bilirubin Urine Neg (Negative); Blood Urine 2+ (Negative); Glucose Urine UA 4+ (Normal); Ketones Urine Negative (Negative); Leukocyte Esterase Urine Negative (Negative); Nitrate Urine Negative (Negative); Protein Urine Neg (Negative); RBC Urine RARE /hpf (0-2); Squamous Epithelial Cell Urine 0-4 /hpf (0-5); Urine Appearance Hazy (CLEAR); Urine Color Yellow (Yellow); Urobilinogen Urine Neg (Negative); WBC Urine RARE /hpf (0-5); pH Urine 5 (5-7)
[2023-07-19] MEDS: dexamethasone 10 mg/mL INJ IVP (22:35)
[2023-07-19 23:01] VITALS: BP 160/77; PULSE 106; RESP 18; O2SAT 95
== END 2023-07-19 23:00 | disposition home or self-care (01) ==
PROVIDERS: Emergency Provider Physician Assistant
DX: M79.18 Myalgia, other site (principal); Z79.84 Long term (current) use of oral hypoglycemic drugs; F17.210 Nicotine dependence, cigarettes, uncomplicated
CPT/HCPCS: 74177; 80053; 81001; 81025; 83690; 85025; 87086; 96361; 96374; 96375; 99285; J1100; J1885; J7030; Q9967

== ENCOUNTER 2023-09-09 08:07 | Emergency (ER) | payer BC, SELFPAY ==
[2023-09-09 08:40] VITALS: BP 138/88; PULSE 91; RESP 12; TEMP 36.6; O2SAT 96; BMI 37.8
[2023-09-09 08:48] LABS: Basophils % 0.2 %; Eosinophils # 0.3 10^3/uL (0.0-0.8); Eosinophils % 3.2 %; Hematocrit 49.5 % (36-47); Lymphocytes # 1.9 10^3/uL (0.8-4.8); Lymphocytes % 22.3 %; Mean Corpuscular HGB Conc 34.1 g/dL (30-55); Mean Corpuscular Hemoglobin 28.6 pg (27-33); Mean Corpuscular Volume 83.8 fl (85-98); Mean Platelet Volume 9.8 fL (7.4-10.4); Monocytes # 0.6 10^3/uL (0.2-0.9); Monocytes % 6.7 %; Neutrophils # 5.77 10^3/uL (1.8-7.7); Neutrophils % 67.4 %; Nucleated Red Blood Cells % 0 %; Platelet Count 278 10^3/cmm (157-399); Red Blood Count 5.91 10^6/uL (3.85-5.65); Red Cell Distribution Width 13.3 % (12.1-15.1); White Blood Count 8.56 10^3/uL (3.29-11.43)
[2023-09-09 08:59] VITALS: BP 148/89; PULSE 89; RESP 16; O2SAT 96; O2SAT 97
--- NOTE | 2023-09-09 09:02 | US_ITS ---
WS: [id number] RIGHT UPPER QUADRANT ULTRASOUND HISTORY: RUQ abd pain COMPARISON: None available. Liver: 18.2 cm in length. Mild hepatomegaly and hepatic steatosis. Normal size liver with no bile rocio t dilatation. Portal Vein: Normal hepatopetal flow with monophasic waveform. Gallbladder: Normally distended gallbladder with no stones or wall thickening. CBD: 0.3 cm Pancreas: Normal size and echogenicity. Right kidney: 11.7 cm in length. Normal size and echogenicity. No hydronephrosis or mass. Aorta and IVC: Unremarkable abdominal aorta and IVC. No ascites. IMPRESSION: 1. Normal gallbladder. 2. Mild hepatic steatosis and hepatomegaly.
[2023-09-09 09:07] LABS: Alanine Aminotransferase 15 U/L (0-33); Albumin Level 4.2 g/dL (3.5-5.2); Alkaline Phosphatase 80 U/L (35-105); Anion Gap 15.6 (5-19); Aspartate Amino Transferase 13 U/L (0-32); Blood Urea Nitrogen 17 mg/dL (6-20); Calcium 9.5 mg/dL (8.5-10.5); Carbon Dioxide 23 mmol/L (22-29); Chloride 97 mmol/L (98-107); Globulin 2.9 g/dL (1.3-4.6); Glomerular Filtration Rate 138.1 mL/min (90-130); Glucose 378 mg/dL (65-115); Lipase 19 U/L (13-60); Osmolality Calculated 289 mOsm/kg (285-295); Potassium 4.6 mmol/L (3.5-5.1); Sodium 131 mmol/L (136-145); Total Bilirubin 0.4 mg/dL (0.15-1.2); Total Protein 7.1 g/dL (6.6-8.7)
[2023-09-09 09:09] LABS: HCG, Serum Qual Negative (Negative)
--- NOTE | 2023-09-09 09:12 | W.ED.ABDPA2 ---
HPI - Abdominal Pain General: Chief Complaint: Abdominal Pain Stated Complaint: pain on right side Time Seen by Provider: 09/09/23 08:20 Source: patient Mode of arrival: ambulatory History of Present Illness: 29-year-old female presents emergency room complaining abdominal pain. She localizes the right upper quadrant. Nausea vomiting indigestion-like symptoms she has had this intermittently over the last month, worse the last 2 days. she was seen previously was thought to be musculoskeletal. She denies noticing anything that exacerbates or relieves his symptoms. They have not been associated particular food she denies any vomiting or diarrhea. No dysuria urgency or frequency no hematuria. No hematemesis coffee-ground emesis. No previous abdominal surgeries. MD elicited complaint: abdominal pain Onset (ago): week(s) Pain Consistency: constant Location: RUQ Severity: mild Quality: sharp Exacerbating factors: nothing Relieving factors: nothing Associated Symptoms: Denies anorexia, belching, bloating, change in bowel habits, change in stool character, chills, coffee ground emesis, constipation, GI cramping, diarrhea, dyspepsia, dysuria, excessive flatus, fever(s), heartburn, hematochezia, hematuria, hematemesis, fecal incontinence, loose stools, melena, nausea, poor appetite, syncope and vomiting Review of Systems Const: Denies: fever(s) or chills Card: Denies: syncope Resp: Denies: dyspnea GI: Denies: nausea, vomiting, hematemesis, coffee ground emesis, heartburn, diarrhea, constipation, bloating, GI cramping, belching, excessive flatus, fecal incontinence, change in bowel habits, change in stool character, hematochezia or melena : Denies: dysuria or hematuria Musc: Denies: neck pain or back pain Skin/Breast: Denies: rash PFSH ED PFSH: Medical History Skin abscess Family History Father , at 55 of [place] Family history of premature coronary artery disease Denies family history of Clotting disorder Bleeding disorder Social History Smoking and tobacco/nicotine status: current every day tobacco/nicotine user Physical Exam Const: GENERAL APPEARANCE: cooperative and comfortable ORIENTATION/CONSCIOUSNESS: Yes awake, Yes oriented to person, Yes oriented to place and Yes oriented to time HENMT: COMMON NORMALS: normocephalic, atraumatic and hearing grossly normal bilaterally HEAD & SCALP: normocephalic and atraumatic Resp: COMMON NORMALS: normal respiratory effort, No retractions, No use of accessory muscles and clear to auscultation bilaterally AUSCULTATION: clear to auscultation bilaterally Cardio: COMMON NORMALS: regular rate, regular rhythm and No murmurs present (Cardio) RATE: regular rate RHYTHM: regular rhythm GI: COMMON NORMALS: No hepatosplenomegaly present AUSCULTATION: Yes normoactive bowel sounds PALPATION: Yes Tenderness to palpation present (GI) Details: RUQ, No Guarding due to palpation present (GI) and Yes No hepatosplenomegaly present : BLADDER/KIDNEY EXAM: Yes CVA tenderness on the right Back/Pelvis: GENERAL BACK: Yes CVA tenderness Extremity: COMMON NORMALS: normal to inspection, capillary refill normal, no clubbing, cyanosis or edema, no calf tenderness and no pedal edema Neuro: SENSORIUM/ORIENTATION: Yes oriented to person, Yes oriented to place and Yes oriented to time Skin: COMMON NORMALS: no rashes or lesions noted GENERAL SKIN EXAM: no rashes or lesions noted Course Vital Signs: Vital signs: Vital Signs Temperature 97.8 F 09/09/23 08:40 Pulse Rate 94 09/09/23 10:59 Respiratory Rate 16 09/09/23 10:59 Blood Pressure 111/63 09/09/23 10:59 Pulse Oximetry 95 09/09/23 10:59 Oxygen Delivery Me thod Room Air 09/09/23 10:58 MDM - Abdominal Pain Medical Decision Making Labs and imaging reviewed. Suspect patient may have biliary dyskinesia. She is having biliary colic of an extended period of time her liver functions and imaging are normal. We will set up for an outpatient HIDA scan follow-up with primary care discussed dietary restrictions. Medical Records I reviewed the patient's medical records. Lab Data I reviewed the patient's lab results. 09/09/23 08:37 09/09/23 08:37 Labs/Radiology: Laboratory Results WBC 8.56 10^3/uL (3.29-11.43) 09/09/23 08:37 RBC 5.91 10^6/uL (3.85-5.65) H 09/09/23 08:37 Hgb 16.90 g/dL (11.27-16.99) 09/09/23 08:37 Hct 49.5 % (36-47) H 09/09/23 08:37 MCV 83.8 fl (85-98) L 09/09/23 08:37 MCH 28.6 pg (27-33) 09/09/23 08:37 MCHC 34.1 g/dL (30-55) 09/09/23 08:37 RDW 13.3 % (12.1-15.1) 09/09/23 08:37 Plt Count 278 10^3/cmm (157-399) 09/09/23 08:37 MPV 9.8 fL (7.4-10.4) 09/09/23 08:37 Neut % (Auto) 67.4 % 09/09/23 08:37 Lymph % (Auto) 22.3 % 09/09/23 08:37 [place] % (Auto) 6.7 % 09/09/23 08:37 Eos % (Auto) 3.2 % 09/09/23 08:37 Baso % (Auto) 0.2 % 09/09/23 08:37 Neut # (Auto) 5.77 10^3/uL (1.8-7.7) 09/09/23 08:37 Lymph # (Auto) 1.9 10^3/uL (0.8-4.8) 09/09/23 08:37 [place] # (Auto) 0.6 10^3/uL (0.2-0.9) 09/09/23 08:37 Eos # (Auto) 0.3 10^3/uL (0.0-0.8) 09/09/23 08:37 Baso # (Auto) 0.0 10^3/uL (0.0-0.1) 09/09/23 08:37 Nucleated RBC % (auto) 0 % 09/09/23 08:37 Nucleated RBCs # 0.0 /100WBC 09/09/23 08:37 Sodium 131 mmol/L (136-145) L 09/09/23 08:37 Potassium 4.6 mmol/L (3.5-5.1) 09/09/23 08:37 Chloride 97 mmol/L (98-107) L 09/09/23 08:37 Carbon Dioxide 23 mmol/L (22-29) 09/09/23 08:37 Anion Gap 15.6 (5-19) 09/09/23 08:37 BUN 17 mg/dL (6-20) 09/09/23 08:37 Creatinine 0.5 mg/dL (0.5-0.9) 09/09/23 08:37 GFR Calculation 138.1 mL/min (90-130) H 09/09/23 08:37 Glucose 378 mg/dL (65-115) H 09/09/23 08:37 Calculated Osmolality 289 mOsm/kg (285-295) 09/09/23 08:37 Calcium 9.5 mg/dL (8.5-10.5) 09/09/23 08:37 Total Bilirubin 0.4 mg/dL (0.15-1.2) 09/09/23 08:37 AST 13 U/L (0-32) 09/09/23 08:37 ALT 15 U/L (0-33) 09/09/23 08:37 Alkaline Phosphatase 80 U/L (35-105) 09/09/23 08:37 Total Protein 7.1 g/dL (6.6-8.7) 09/09/23 08:37 Albumin 4.2 g/dL (3.5-5.2) 09/09/23 08:37 Globulin 2.9 g/dL (1.3-4.6) 09/09/23 08:37 Lipase 19 U/L (13-60) 09/09/23 08:37 HCG, Qual Negative (Negative) 09/09/23 08:37 Urine Color Yellow (Yellow) 09/09/23 09:09 Urine Appearance Cloudy (CLEAR) A 09/09/23 09:09 Urine pH 5 (5-7) 09/09/23 09:09 Ur Specific [place] 1.025 (1.005-1.030) 09/09/23 09:09 Urine Protein Neg (Negative) 09/09/23 09:09 Urine Glucose (UA) 4+ (Normal) H 09/09/23 09:09 Urine Ketones Negative (Negative) 09/09/23 09:09 Urine Blood Neg (Negative) 09/09/23 09:09 Urine Nitrate Negative (Negative) 09/09/23 09:09 Urine Bilirubin Neg (Negative) 09/09/23 09:09 Urine Urobilinogen Norm mg/dL (Negative) 09/09/23 09:09 Ur Leukocyte Esterase Negative (Negative) 09/09/23 09:09 Urine RBC 0-4 /hpf (0-2) H 09/09/23 09:09 Urine WBC 0-4 /hpf (0-5) H 09/09/23 09:09 Ur Squamous Epith Cells 5-10 /hpf (0-5) H 09/09/23 09:09 Amorphous Sediment Not Reportable 09/09/23 09:09 Urine Bacteria 2+ /hpf (NONE) H 09/09/23 09:09 Hyaline Casts 0-4 /lpf H 09/09/23 09:09 Urine Mucus 1+ /hpf 09/09/23 09:09 Urine Yeast 1+ /hpf H 09/09/23 09:09 All radiology interpretation(s) finalized by discharge Discharge Plan Discharge Patient Disposition: Home Clinical Impression: Biliary colic Condition: Stable Prescriptions: New pantoprazole 40 mg tablet,delayed release (DR/EC) 40 mg PO DAILY Qty: 30 0RF promethazine 25 mg tablet 25 mg PO Q6H PRN (Reason: nausea and vomiting) Qty: 20 0RF No Action cyclobenzaprine 10 mg tablet 10 mg PO BID PRN (Reason: muscle spasm) Qty: 20 0RF naproxen 500 mg tablet 500 mg PO BID PRN (Reason: pain) Qty: 20 0RF Discharge Orders: Discharge ED (Routine); Ordered 09/09/23 Ordered By: Benny Almendarez Discharge Diet: As Directed Discharge Activity: Increase activity as tolerated Patient Instructions: Biliary Colic (ED), Abdominal Pain (ED), Opioid Safety, Pain Management Activity Restrictions/Additional Instructions: Thank you for choosing [facility] for your healthcare needs today. Please realize this is an emergency room and that we are providing you with a medical screening exam and this may not be complete and all inclusive of all the testing and or work up that you may need to determine your ailment or severity of your illness. It is very important that you follow up as instructed or that you return to the Emergency Department should you have concerns or if your condition changes or worsens in any way. You were seen today with abdominal pain that is suggestive of biliary dyskinesia or biliary colic. Liver enzymes and gallbladder ultrasound were normal. associate store manager will make arrangements for you to follow-up with a HIDA scan to further evaluate your gallbladder and follow-up with your primary care doctor. Coding Level of Care Code ED Director Of Revenue for Kristie Morfin
[2023-09-09 10:10] LABS: Add Urine Microscopic? YES; Bilirubin Urine Neg (Negative); Blood Urine Neg (Negative); Glucose Urine UA 4+ (Normal); Ketones Urine Negative (Negative); Leukocyte Esterase Urine Negative (Negative); Nitrate Urine Negative (Negative); Protein Urine Neg (Negative); Specific Gravity, Urine 1.025 (1.005-1.030); Urine Appearance Cloudy (CLEAR); Urine Color Yellow (Yellow); Urobilinogen Urine Norm (Negative); pH Urine 5 (5-7)
[2023-09-09 10:25] VITALS: BP 122/68; PULSE 90; RESP 16; O2SAT 98
[2023-09-09 10:30] LABS: Add Urine Culture? Yes; Hyaline Casts Urine 0-4 /lpf; Mucus Urine 1+ /hpf; RBC Urine 0-4 /hpf (0-2); WBC Urine 0-4 /hpf (0-5)
[2023-09-09 10:31] LABS: Bacteria Urine 2+ /hpf
[2023-09-09 10:58] VITALS: BP 111/63; PULSE 93; RESP 16; O2SAT 94
[2023-09-09 10:59] VITALS: BP 111/63; PULSE 94; RESP 16; O2SAT 95
--- NOTE | 2023-09-10 08:41 | DCPLANNER ---
Message sent to [facility] to establish a PCP.
--- NOTE | 2023-09-15 09:22 | DCPLANNER ---
Resent a referral to [facility] since there was no message sent to them for a referral. Resent referral on 09/15/23 at 0923.
--- NOTE | 2023-09-30 08:42 | DCPLANNER ---
Referral for a PCP was sent to [facility] to [facility] they have tried multiple times to reach patient with no return call back.
== END 2023-09-09 11:03 | disposition home or self-care (01) ==
PROVIDERS: Emergency Provider Family Medicine
DX: K80.50 Calculus of bile duct without cholangitis or cholecystitis without obstruction (principal); Z72.0 Tobacco use
CPT/HCPCS: 36415; 76705; 80053; 81001; 83690; 84703; 85025; 87086; 99284

== ENCOUNTER 2024-03-25 11:15 | Emergency (ER) | payer BC, SELFPAY ==
--- NOTE | 2024-03-25 11:19 | XR_ITS ---
WS: [id number] Exam: XR ankle RT min 3V* [id number] Date/Time of Exam: 03/25/2024 11:19 AM Reason For Exam: injury Findings: Multiple views of the ankle reveal no fracture or displacements of bone. No soft tissue swelling is present. There are no periosteal reactions noted. The talus and calcaneus are in adequate position. The joint space is smooth and equidistant. XR/XR ankle RT min 3V* [id number] IMPRESSION: Negative RIGHT ankle.
[2024-03-25 12:01] VITALS: BP 149/96; PULSE 103; RESP 16; TEMP 36.4; O2SAT 93; BMI 37.8
--- NOTE | 2024-03-25 13:17 | W.ED.EXTPRO ---
HPI - Extremity Problem General: Chief complaint: Extremity Injury, Lower Stated complaint: right ankle pain Time Seen by Provider: 03/25/24 13:16 History of Present Illness: 38-year-old female comes in today for complaints of injury to the right ankle. Patient was walking down a hill yesterday and twisted her ankle. Patient has had persistent pain and discomfort. Review of Systems General: Reports: 10 or more systems reviewed and unremarkable except in HPI and below Musc: Reports: joint pain PFSH ED PFSH: Medical History Skin abscess Family History Father , at 55 of [place] Family history of premature coronary artery disease Denies family history of Clotting disorder Bleeding disorder Social History Smoking and tobacco/nicotine status: current every day tobacco/nicotine user Physical Exam Const: COMMON NORMALS: alert HENMT: COMMON NORMALS: normocephalic HEAD & SCALP: normocephalic Neck/C-Spine: COMMON NORMALS: full ROM Resp: COMMON NORMALS: normal respiratory effort and clear to auscultation bilaterally AUSCULTATION: clear to auscultation bilaterally Cardio: COMMON NORMALS: regular rate and regular rhythm RATE: regular rate RHYTHM: regular rhythm GI: COMMON NORMALS: Soft to palpation PALPATION: Yes Soft to palpation Back/Pelvis: COMMON NORMALS: thoracic and lumbar spine normal to inspection Extremity: COMMON NORMALS: normal to inspection RIGHT LOWER EXTREMITY: Yes foot & digits (No swelling, normal alignment) Right ankle: Yes inspection, Yes palpation and Yes ROM Neuro: SENSORIUM/ORIENTATION: Yes alert Course Vital Signs: Vital signs: Vital Signs Temperature 97.6 F 03/25/24 12:01 Pulse Rate 103 H 03/25/24 12:01 Respiratory Rate 16 03/25/24 12:01 Blood Pressure 149/96 03/25/24 12:01 Pulse Oximetry 93 03/25/24 12:01 Oxygen Delivery Me thod Room Air 03/25/24 12:01 MDM - Extremity (Nontraumatic) Medical Decision Making 38-year-old female comes in today for injury to the right ankle. On exam there is no swelling or signs of dislocation. Differential diagnosis includes not limited to fracture, sprain, contusion. X-ray noted no fracture or dislocation. Recommended elastic bandage and crutches for comfort. Patient refused crutches. Recommend follow-up with primary care return to ED for new concerns. Lab Data Radiology Impressions Ankle X-Ray 03/25/24 11:19 IMPRESSION: Negative RIGHT ankle. All radiology interpretation(s) finalized by discharge Discharge Plan Discharge Patient Disposition: Home Condition: Stable Prescriptions: No Action cyclobenzaprine 10 mg tablet 10 mg PO BID PRN (Reason: muscle spasm) Qty: 20 0RF naproxen 500 mg tablet 500 mg PO BID PRN (Reason: pain) Qty: 20 0RF pantoprazole 40 mg tablet,delayed release (DR/EC) 40 mg PO DAILY Qty: 30 0RF promethazine 25 mg tablet 25 mg PO Q6H PRN (Reason: nausea and vomiting) Qty: 20 0RF Discharge Orders: Discharge ED (Routine); Ordered 03/25/24 Ordered By: Natanael Ramirez Discharge Diet: Usual diet Discharge Activity: Increase activity as tolerated Patient Instructions: Ankle Sprain (ED) Activity Restrictions/Additional Instructions: Wear elastic bandage for comfort and support. Use ice packs for further pain relief. Use acetaminophen and ibuprofen otherwise for pain. Follow-up with primary care for further instructions. Return to ED for new concerns. Coding Level of Care Code ED Surgical Elastic Knitter Hand Frame for Kristie Morfin
[2024-03-25 13:49] VITALS: BP 146/98; PULSE 98; RESP 16; TEMP 36.4; O2SAT 94
== END 2024-03-25 13:31 | disposition home or self-care (01) ==
PROVIDERS: Emergency Provider Nurse Practitioner Family
DX: S99.911A Unspecified injury of right ankle, initial encounter (principal); Z72.0 Tobacco use; X50.1XXA Overexertion from prolonged static or awkward postures, initial encounter
CPT/HCPCS: 73610; 99283

== ENCOUNTER 2024-05-27 23:33 | Emergency (ER) | payer BC, SELFPAY ==
[2024-05-27 23:46] VITALS: BP 137/89; PULSE 99; RESP 16; TEMP 36.8; O2SAT 97; BMI 37.8
[2024-05-27 23:51] VITALS: BP 155/101; PULSE 100; RESP 16; O2SAT 97
--- NOTE | 2024-05-27 23:54 | ED_ITS ---
Documented by User: BRAYAN Flowers 05/30/24 13:33 HPI - Abdominal Pain 2 General: Chief Complaint: Abdominal Pain Stated Complaint: ABD Pain Time Seen by Provider: 05/27/24 23:47 History of Present Illness: 38-year-old female comes in today for co mplaints of lower abdominal pain. Patient appears nontoxic. Patient appears no acute distress. Patient reports last menstrual cycle was 2 weeks ago. Patient did report a positive test since then. Patient then repeated the test a week later and noticed that was negative. Patient denies any history of surgeries. Patient reports for the last 2 days she has had increasing pain and discomfort to the lower abdomen. Patient is a chronic tobacco user. Patient denies any THC, methamphetamine, or EtOH use. Patient does use routine [id number] acetaminophen and ibuprofen. Patient reports a pack a day smoker for the last 15 to 20 years. Patient is 0 para 0. Related Data Previous Rx's Medication Instructions Recorded cyclobenzaprine 10 mg tablet 10 mg PO BID PRN muscle spasm #20 08/28/21 tabs naproxen 500 mg tablet 500 mg PO BID PRN pain #20 tabs 07/19/23 pantoprazole 40 mg tablet,delayed 40 mg PO DAILY #30 tabs 09/09/23 release promethazine 25 mg tablet 25 mg PO Q6H PRN nausea and 09/09/23 vomiting #20 tabs Allergies Allergy/AdvReac Type Severity Reaction Status Date / Time Penicillins Allergy STIVENY-Swell Verified 09/09/23 08:40 Lip/Tongue/Throat Review of Systems 2 General: Reports: 10 or more systems reviewed and unremarkable except in HPI and below GI: Reports: abdominal pain PFSH ED 2 PFSH: Medical History Skin abscess Family History Father , at 55 of [place] Family history of premature coronary artery disease Denies family history of Clotting disorder Bleeding disorder Social History Smoking and tobacco/nicotine status: current every day tobacco/nicotine user Physical Exam 2 Const: COMMON NORMALS: alert HENMT: COMMON NORMALS: normocephalic HEAD & SCALP: normocephalic Neck/C-Spine: COMMON NORMALS: full ROM Resp: COMMON NORMALS: normal respiratory effort and clear to auscultation bilaterally AUSCULTATION: clear to auscultation bilaterally Cardio: COMMON NORMALS: regular rate RATE: regular rate GI: COMMON NORMALS: Soft to palpation AUSCULTATION: Yes normoactive bowel sounds PALPATION: Yes Soft to palpation and Yes Tenderness to palpation present (GI) : COMMON NORMALS: Yes no CVA tenderness BLADDER/KIDNEY EXAM: Yes no CVA tenderness Back/Pelvis: COMMON NORMALS: no CVA tenderness Extremity: COMMON NORMALS: full ROM Neuro: SENSORIUM/ORIENTATION: Yes alert Skin: COMMON NORMALS: turgor normal GENERAL SKIN EXAM: turgor normal Course 2 Vital Signs: Vital signs: Vital Signs Temperature 98.3 F 05/27/24 23:46 Pulse Rate 87 05/28/24 02:21 Respiratory Rate 16 05/28/24 02:21 Blood Pressure 120/82 05/28/24 02:21 Pulse Oximetry 97 05/28/24 01:51 Oxygen Delivery Me thod Room Air 05/27/24 23:46 MDM - Abdominal Pain Medical Decision Making 38-year-old female comes in today with complaints of lower abdominal pain. Patient appears nontoxic. Patient has tenderness in the lower abdomen. No CVA tenderness. Vital signs are normal. Differential diagnosis includes but not limited to urinary tract infection, pelvic organ prolapse disorder, appendicitis, constipation, vaginitis. Lab Data 05/27/24 23:53 05/27/24 23:53 Labs/Radiology: Radiology Impressions Abdomen/Pelvis CT 05/28/24 00:22 IMPRESSION: No acute intra-abdominal process. Laboratory Results WBC 5.26 10^3/uL (3.29-11.43) 05/27/24 23:53 RBC 5.80 10^6/uL (3.85-5.65) H 05/27/24 23:53 Hgb 17.00 g/dL (11.27-16.99) H 05/27/24 23:53 Hct 47.4 % (36-47) H 05/27/24 23:53 MCV 81.7 fl (85-98) L 05/27/24 23:53 MCH 29.3 pg (27-33) 05/27/24 23:53 MCHC 35.9 g/dL (30-55) 05/27/24 23:53 RDW 13.2 % (12.1-15.1) 05/27/24 23:53 Plt Count 272 10^3/cmm (157-399) 05/27/24 23:53 MPV 9.5 fL (7.4-10.4) 05/27/24 23:53 Neut % (Auto) 58.1 % 05/27/24 23:53 Lymph % (Auto) 27.2 % 05/27/24 23:53 [place] % (Auto) 10.3 % 05/27/24 23:53 Eos % (Auto) 3.8 % 05/27/24 23:53 Baso % (Auto) 0.4 % 05/27/24 23:53 Neut # (Auto) 3.06 10^3/uL (1.8-7.7) 05/27/24 23:53 Lymph # (Auto) 1.4 10^3/uL (0.8-4.8) 05/27/24 23:53 [place] # (Auto) 0.5 10^3/uL (0.2-0.9) 05/27/24 23:53 Eos # (Auto) 0.2 10^3/uL (0.0-0.8) 05/27/24 23:53 Baso # (Auto) 0.0 10^3/uL (0.0-0.1) 05/27/24 23:53 Nucleated RBC % (auto) 0 % 05/27/24 23:53 Nucleated RBCs # 0.0 /100WBC 05/27/24 23:53 Sodium 138 mmol/L (136-145) 05/27/24 23:53 Potassium 4.1 mmol/L (3.5-5.1) 05/27/24 23:53 Chloride 99 mmol/L (98-107) 05/27/24 23:53 Carbon Dioxide 24 mmol/L (22-29) 05/27/24 23:53 Anion Gap 19.1 (5-19) H 05/27/24 23:53 BUN 13 mg/dL (6-20) 05/27/24 23:53 Creatinine 0.5 mg/dL (0.5-0.9) 05/27/24 23:53 GFR Calculation 137.4 mL/min (90-130) H 05/27/24 23:53 Glucose 292 mg/dL (65-115) H 05/27/24 23:53 Calculated Osmolality 297 mOsm/kg (285-295) H 05/27/24 23:53 Calcium 8.8 mg/dL (8.5-10.5) 05/27/24 23:53 Total Bilirubin 0.2 mg/dL (0.15-1.2) 05/27/24 23:53 AST 17 U/L (0-32) 05/27/24 23:53 ALT 19 U/L (0-33) 05/27/24 23:53 Alkaline Phosphatase 87 U/L (35-105) 05/27/24 23:53 Total Protein 7.3 g/dL (6.6-8.7) 05/27/24 23:53 Albumin 4.2 g/dL (3.5-5.2) 05/27/24 23:53 Globulin 3.1 g/dL (1.3-4.6) 05/27/24 23:53 Lipase 19 U/L (13-60) 05/27/24 23:53 HCG, Qual Negative (Negative) 05/27/24 23:53 Urine Color Yellow (Yellow) 05/28/24 01:28 Urine Appearance Clear (CLEAR) 05/28/24 01:28 Urine pH 6.5 (5-7) 05/28/24 01:28 Ur Specific [place] 1.068 (1.005-1.030) H 05/28/24 01:28 Urine Protein Negative (Negative) 05/28/24 01:28 Urine Glucose (UA) 3+ (Normal) H 05/28/24 01:28 Urine Ketones Negative (Negative) 05/28/24 01:28 Urine Blood Negative (Negative) 05/28/24 01:28 Urine Nitrate Negative (Negative) 05/28/24 01:28 Urine Bilirubin Negative (Negative) 05/28/24 01:28 Urine Urobilinogen 2.0 mg/dL (Negative) H 05/28/24 01:28 Ur Leukocyte Esterase Negative (Negative) 05/28/24 01:28 Urine RBC 0-2 /hpf (0-2) 05/28/24 01:28 Urine WBC 0-5 /hpf (0-5) 05/28/24 01:28 Ur Squamous Epith Cells 0-5 /hpf (0-5) 05/28/24 01:28 Amorphous Sediment Not Reportable 05/28/24 01:28 Urine Bacteria None seen /hpf (NONE) 05/28/24 01:28 Hyaline Casts 0-4 /lpf H 05/28/24 01:28 Discharge Plan Discharge Patient Disposition: Home Clinical Impression: Abdominal pain Qualifiers: Abdominal location: unspecified location Qualified Code(s): R10.9 - Unspecified abdominal pain Condition: Stable Prescriptions: No Action cyclobenzaprine 10 mg tablet 10 mg PO BID PRN (Reason: muscle spasm) Qty: 20 0RF naproxen 500 mg tablet 500 mg PO BID PRN (Reason: pain) Qty: 20 0RF pantoprazole 40 mg tablet,delayed release (DR/EC) 40 mg PO DAILY Qty: 30 0RF promethazine 25 mg tablet 25 mg PO Q6H PRN (Reason: nausea and vomiting) Qty: 20 0RF Discharge Orders: Discharge ED (Routine); Ordered 05/28/24 Ordered By: Samy Herrera Patient Instructions: Abdominal Pain (ED) Activity Restrictions/Additional Instructions: Thank you for choosing [facility] for your healthcare needs today. Please realize that you were seen in the emergency department and that we are providing you with an emergency medical screening exam and this may not be a complete and all exclusive of all testing and/or medical workup we may need to determine your element or severity of your illness. It is very important that you follow-up as instructed with your primary care provider or specialist for the additional evaluation and to discuss your medical treatment plan. You may return to the emergency department should you have concerns or if your condition changes or worsens in any way. Coding Level of Care Code ED Software Systems Architect for [employer] Documented by User: Samy Herrera DO 05/28/24 02:39 HPI - Abdominal Pain 2 General: Chief Complaint: Abdominal Pain Stated Complaint: ABD Pain Time Seen by Provider: 05/27/24 23:47 Related Data Previous Rx's Medication Instructions Recorded cyclobenzaprine 10 mg tablet 10 mg PO BID PRN muscle spasm #20 08/28/21 tabs naproxen 500 mg tablet 500 mg PO BID PRN pain #20 tabs 07/19/23 pantoprazole 40 mg tablet,delayed 40 mg PO DAILY #30 tabs 09/09/23 release promethazine 25 mg tablet 25 mg PO Q6H PRN nausea and 09/09/23 vomiting #20 tabs Allergies Allergy/AdvReac Type Severity Reaction Status Date / Time Penicillins Allergy ALGY-Swell Verified 09/09/23 08:40 Lip/Tongue/Throat PFSH ED 2 PFSH: Medical History Skin abscess Family History Father , at 55 [place] Family history of premature coronary artery disease Denies family history of Clotting disorder Bleeding disorder Social History Smoking and tobacco/nicotine status: current every day tobacco/nicotine user Course 2 Vital Signs: Vital signs: Vital Signs Temperature 98.3 F 05/27/24 23:46 Pulse Rate 87 05/28/24 02:21 Respiratory Rate 16 05/28/24 02:21 Blood Pressure 120/82 05/28/24 02:21 Pulse Oximetry 97 05/28/24 01:51 Oxygen Delivery Me thod Room Air 05/27/24 23:46 MDM - Abdominal Pain Medical Decision Making 38-year-old female comes in today with complaints of lower abdominal pain. Patient appears nontoxic. Patient has tenderness in the lower abdomen. No CVA tenderness. Vital signs are normal. Differential diagnosis includes but not limited to urinary tract infection, pelvic organ prolapse disorder, appendicitis, constipation, vaginitis. Care turned over to myself at shift change, reviewed lab work and CT scan of the abdomen pelvis, discussed these with the patient. Patient will be discharged home to follow-up with her PCP for further evaluation and treatment. Lab Data 05/27/24 23:53 05/27/24 23:53 Labs/Radiology: Radiology Impressions Abdomen/Pelvis CT 05/28/24 00:22 IMPRESSION: No acute intra-abdominal process. Laboratory Results WBC 5.26 10^3/uL (3.29-11.43) 05/27/24 23:53 RBC 5.80 10^6/uL (3.85-5.65) H 05/27/24 23:53 Hgb 17.00 g/dL (11.27-16.99) H 05/27/24 23:53 Hct 47.4 % (36-47) H 05/27/24 23:53 MCV 81.7 fl (85-98) L 05/27/24 23:53 MCH 29.3 pg (27-33) 05/27/24 23:53 MCHC 35.9 g/dL (30-55) 05/27/24 23:53 RDW 13.2 % (12.1-15.1) 05/27/24 23:53 Plt Count 272 10^3/cmm (157-399) 05/27/24 23:53 MPV 9.5 fL (7.4-10.4) 05/27/24 23:53 Neut % (Auto) 58.1 % 05/27/24 23:53 Lymph % (Auto) 27.2 % 05/27/24 23:53 [place] % (Auto) 10.3 % 05/27/24 23:53 Eos % (Auto) 3.8 % 05/27/24 23:53 Baso % (Auto) 0.4 % 05/27/24 23:53 Neut # (Auto) 3.06 10^3/uL (1.8-7.7) 05/27/24 23:53 Lymph # (Auto) 1.4 10^3/uL (0.8-4.8) 05/27/24 23:53 [place] # (Auto) 0.5 10^3/uL (0.2-0.9) 05/27/24 23:53 Eos # (Auto) 0.2 10^3/uL (0.0-0.8) 05/27/24 23:53 Baso # (Auto) 0.0 10^3/uL (0.0-0.1) 05/27/24 23:53 Nucleated RBC % (auto) 0 % 05/27/24 23:53 Nucleated RBCs # 0.0 /100WBC 05/27/24 23:53 Sodium 138 mmol/L (136-145) 05/27/24 23:53 Potassium 4.1 mmol/L (3.5-5.1) 05/27/24 23:53 Chloride 99 mmol/L (98-107) 05/27/24 23:53 Carbon Dioxide 24 mmol/L (22-29) 05/27/24 23:53 Anion Gap 19.1 (5-19) H 05/27/24 23:53 BUN 13 mg/dL (6-20) 05/27/24 23:53 Creatinine 0.5 mg/dL (0.5-0.9) 05/27/24 23:53 GFR Calculation 137.4 mL/min (90-130) H 05/27/24 23:53 Glucose 292 mg/dL (65-115) H 05/27/24 23:53 Calculated Osmolality 297 mOsm/kg (285-295) H 05/27/24 23:53 Calcium 8.8 mg/dL (8.5-10.5) 05/27/24 23:53 Total Bilirubin 0.2 mg/dL (0.15-1.2) 05/27/24 23:53 AST 17 U/L (0-32) 05/27/24 23:53 ALT 19 U/L (0-33) 05/27/24 23:53 Alkaline Phosphatase 87 U/L (35-105) 05/27/24 23:53 Total Protein 7.3 g/dL (6.6-8.7) 05/27/24 23:53 Albumin 4.2 g/dL (3.5-5.2) 05/27/24 23:53 Globulin 3.1 g/dL (1.3-4.6) 05/27/24 23:53 Lipase 19 U/L (13-60) 05/27/24 23:53 HCG, Qual Negative (Negative) 05/27/24 23:53 Urine Color Yellow (Yellow) 05/28/24 01:28 Urine Appearance Clear (CLEAR) 05/28/24 01:28 Urine pH 6.5 (5-7) 05/28/24 01:28 Ur Specific [place] 1.068 (1.005-1.030) H 05/28/24 01:28 Urine Protein Negative (Negative) 08/23/24 01:28 Urine Glucose (UA) 3+ (Normal) H 05/28/24 01:28 Urine Ketones Negative (Negative) 05/28/24 01:28 Urine Blood Negative (Negative) 05/28/24 01:28 Urine Nitrate Negative (Negative) 05/28/24 01:28 Urine Bilirubin Negative (Negative) 05/28/24 01:28 Urine Urobilinogen 2.0 mg/dL (Negative) H 05/28/24 01:28 Ur Leukocyte Esterase Negative (Negative) 05/28/24 01:28 Urine RBC 0-2 /hpf (0-2) 05/28/24 01:28 Urine WBC 0-5 /hpf (0-5) 05/28/24 01:28 Ur Squamous Epith Cells 0-5 /hpf (0-5) 05/28/24 01:28 Amorphous Sediment Not Reportable 05/28/24 01:28 Urine Bacteria None seen /hpf (NONE) 05/28/24 01:28 Hyaline Casts 0-4 /lpf H 05/28/24 01:28 All radiology interpretation(s) finalized by discharge Discharge Plan Discharge Patient Disposition: Home Clinical Impression: Abdominal pain Qualifiers: Abdominal location: unspecified location Qualified Code(s): R10.9 - Unspecified abdominal pain Condition: Stable Prescriptions: No Action cyclobenzaprine 10 mg tablet 10 mg PO BID PRN (Reason: muscle spasm) Qty: 20 0RF naproxen 500 mg tablet 500 mg PO BID PRN (Reason: pain) Qty: 20 0RF pantoprazole 40 mg tablet,delayed release (DR/EC) 40 mg PO DAILY Qty: 30 0RF promethazine 25 mg tablet 25 mg PO Q6H PRN (Reason: nausea and vomiting) Qty: 20 0RF Discharge Orders: Discharge ED (Routine); Ordered 05/28/24 Ordered By: Samy Herrera Patient Instructions: Abdominal Pain (ED) Activity Restrictions/Additional Instructions: Thank you for choosing [facility] for your healthcare needs today. Please realize that you were seen in the emergency department and that we are providing you with an emergency medical screening exam and this may not be a complete and all exclusive of all testing and/or medical workup we may need to determine your element or severity of your illness. It is very important that you follow-up as instructed with your primary care provider or specialist for the additional evaluation and to discuss your medical treatment plan. You may return to the emergency department should you have concerns or if your condition changes or worsens in any way. Coding Level of Care Code ED Software Systems Architect for Kristie Morfin
[2024-05-28 00:02] LABS: Basophils % 0.4 %; Eosinophils # 0.2 10^3/uL (0.0-0.8); Eosinophils % 3.8 %; Hematocrit 47.4 % (36-47); Lymphocytes # 1.4 10^3/uL (0.8-4.8); Lymphocytes % 27.2 %; Mean Corpuscular HGB Conc 35.9 g/dL (30-55); Mean Corpuscular Hemoglobin 29.3 pg (27-33); Mean Corpuscular Volume 81.7 fl (85-98); Mean Platelet Volume 9.5 fL (7.4-10.4); Monocytes # 0.5 10^3/uL (0.2-0.9); Monocytes % 10.3 %; Neutrophils # 3.06 10^3/uL (1.8-7.7); Neutrophils % 58.1 %; Nucleated Red Blood Cells % 0 %; Platelet Count 272 10^3/cmm (157-399); Red Cell Distribution Width 13.2 % (12.1-15.1); White Blood Count 5.26 10^3/uL (3.29-11.43)
[2024-05-28 00:16] LABS: HCG, Serum Qual Negative (Negative)
[2024-05-28 00:22] LABS: Alanine Aminotransferase 19 U/L (0-33); Albumin Level 4.2 g/dL (3.5-5.2); Alkaline Phosphatase 87 U/L (35-105); Anion Gap 19.1 (5-19); Aspartate Amino Transferase 17 U/L (0-32); Blood Urea Nitrogen 13 mg/dL (6-20); Calcium 8.8 mg/dL (8.5-10.5); Carbon Dioxide 24 mmol/L (22-29); Chloride 99 mmol/L (98-107); Creatinine Clr Calc Pharmacy 173.4552; Globulin 3.1 g/dL (1.3-4.6); Glomerular Filtration Rate 137.4 mL/min (90-130); Glucose 292 mg/dL (65-115); Lipase 19 U/L (13-60); Osmolality Calculated 297 mOsm/kg (285-295); Potassium 4.1 mmol/L (3.5-5.1); Sodium 138 mmol/L (136-145); Total Bilirubin 0.2 mg/dL (0.15-1.2); Total Protein 7.3 g/dL (6.6-8.7)
--- NOTE | 2024-05-28 00:22 | CTR_ITS ---
PROCEDURE INFORMATION: Exam: CT Abdomen And Pelvis With Contrast Exam date and time: 05/28/2024 12:33 AM Age: 38 years old Clinical indication: Abdominal pain; Generalized; Additional info: Abd pain TECHNIQUE: Imaging protocol: Computed tomography of the abdomen and pelvis with contrast. Radiation optimization: All CT scans at this facility use at least one of these dose optimization techniques: automated exposure control; mA and/or kV adjustment per patient size (includes targeted exams where dose is matched to clinical indication); or iterative reconstruction. Contrast material: OMNI 350; Contrast volume: 100 ml; Contrast route: INTRAVENOUS (IV); COMPARISON: CT abdomen pelvis w con* [id number] 07/19/2023 9:31 PM RADIATION DOSE METRICS: Total DLP (mGy-cm): 912.53 FINDINGS: Liver: Normal. No mass. Gallbladder and biliary ducts: Normal. No calcified stones. No ductal dilation. Pancreas: Normal. No ductal dilation. Spleen: Normal. No splenomegaly. Adrenal glands: Normal. No mass. Kidneys and ureters: Normal. No hydronephrosis. Stomach and bowel: Unremarkable. No obstruction. No mucosal thickening. Appendix: No evidence of appendicitis. Intraperitoneal space: Unremarkable. No free air. No significant fluid collection. Vasculature: Vascular calcifications. Lymph nodes: Unremarkable. No enlarged lymph nodes. Urinary bladder: Unremarkable as visualized. Reproductive: Left adnexal hypodense lesion measuring 5 x 3.[address] density of 15 Hounsfield units, likely representing a cyst multilevel posterior osteophytes of the lumbar spine. Bones/joints: See Reproductive finding. Soft tissues: Unremarkable. CT/CT abdomen pelvis w con* [id number] IMPRESSION: No acute intra-abdominal process.
[2024-05-28] MEDS: iohexol 350 mg/mL 500 mL Btl (per mL) IV (00:40)
[2024-05-28] MEDS: sodium chloride 0.9% 1,000 ML 999 ML IV (00:44)
[2024-05-28] MEDS: ketorolac 30 mg/mL INJ 15 MG IVP (00:45)
[2024-05-28 00:51] VITALS: BP 160/94; PULSE 94; RESP 16; O2SAT 97
[2024-05-28 01:21] VITALS: BP 131/89; PULSE 87; RESP 16; O2SAT 97
[2024-05-28 01:39] LABS: Charge for UA Resulting for Rev
[2024-05-28 01:42] LABS: Bilirubin Urine Negative (Negative); Blood Urine Negative (Negative); Glucose Urine UA 3+ (Normal); Ketones Urine Negative (Negative); Leukocyte Esterase Urine Negative (Negative); Nitrate Urine Negative (Negative); Protein Urine Negative (Negative); Urine Appearance Clear (CLEAR); Urine Color Yellow (Yellow); pH Urine 6.5 (5-7)
[2024-05-28 01:47] LABS: Bacteria Urine None Seen /hpf; Hyaline Casts Urine 0-4 /lpf; RBC Urine 0-2 /hpf (0-2); Squamous Epithelial Cell Urine 0-5 /hpf (0-5); WBC Urine 0-5 /hpf (0-5)
[2024-05-28 01:48] LABS: Specific Gravity, Urine 1.068 (1.005-1.030)
[2024-05-28 01:51] VITALS: BP 120/82; PULSE 84; RESP 16; O2SAT 97
[2024-05-28 02:21] VITALS: BP 120/82; PULSE 87; RESP 16
== END 2024-05-28 02:24 | disposition home or self-care (01) ==
PROVIDERS: Emergency Provider Nurse Practitioner Family
DX: R10.30 Lower abdominal pain, unspecified (principal); Z72.0 Tobacco use
CPT/HCPCS: 74177; 80053; 81003; 81015; 83690; 84703; 85025; 96374; 99285; J1885; J7030; Q9967